=== PATIENT | male | born 1980 | race Caucasian/White ===

== ENCOUNTER 2019-10-12 15:10 | Emergency (ER) | payer SELFPAY ==
[2019-10-12] MEDS ORDERED: GLUCAGON 1 MG/VIAL ONE ×2 (15:26→16:13)
[2019-10-12] MEDS ORDERED: WATER FOR INJ,STERILE 0 ML ONE (15:27)
--- NOTE | 2019-10-12 17:15 | ER ---
Nurse's Notes [facility] Name: Dwayne Craig Age: 39 yrs Sex: Male : 1980 Arrival Date: 10/12/2019 Time: 15:12 Bed 7 Private MD: Diagnosis: Foreign body in esophagus Presentation: 10/12 15:13 Presenting complaint: Patient states: this has happened before, i had a cyst on my tw2 esophagus before and it prevented me from swallowing and it happened today, after i ate a large bite of turkey, i try to drink stuff and i throw it up. Transition of care: patient was not received from another setting of care. Onset of symptoms was October 12, 2019. Risk Assessment: Do you want to hurt yourself or someone else? Patient reports no desire to harm self or others. Initial Sepsis Screen: Does the patient meet any 2 criteria? No. Patient's initial sepsis screen is negative. Does the patient have a suspected source of infection? No. Patient's initial sepsis screen is negative. Care prior to arrival: None. 15:13 Method Of Arrival: Ambulatory tw2 15:13 Acuity: JOSIAH 2 tw2 Triage Assessment: 15:14 General: Appears uncomfortable, Behavior is cooperative, appropriate for age. Pain:. tw2 EENT: Reports difficulty swallowing. 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 - Social history:: Smoking status: . - Ebola Screening: : Patient denies exposure to infectious person. Screenin:18 Abuse screen: Denies threats or abuse. Nutritional screening: No deficits noted. tw2 Tuberculosis screening: No symptoms or risk factors identified. Fall Risk None identified. Assessment: 15:30 General: Appears in no apparent distress. well groomed, well developed, well nourished, sg Behavior is calm, cooperative, appropriate for age. Pain: Denies pain. Neuro: Level of Consciousness is awake, alert, obeys commands, Oriented to person, place, time, Loan Review Analyst are equal bilaterally Facial symmetry appears normal. Cardiovascular: Capillary refill is brisk in bilateral fingers Patient's skin is warm and dry. Chest pain is denied. Respiratory: Airway is patent Respiratory effort is even, unlabored, Respiratory pattern is regular, symmetrical. GI: Abdomen is round non-distended, Reports tolerance of fluids, tolerance of food. : No signs and/or symptoms were reported regarding the genitourinary system. EENT: Nares are clear bilaterally Oral mucosa is moist. Throat is clear. Derm: Skin is pink, warm \T\ dry. Musculoskeletal: Circulation, motion, and sensation intact. Range of motion: intact in all extremities. 16:00 Reassessment: Patient appears in no apparent distress at this time. pt given Coke and sg instructed to drink through the straw provided as instructed by the ERP. 17:30 Reassessment: Patient appears in no apparent distress at this time. Patient and/or sg family updated on plan of care and expected duration. Pain level reassessed. Patient is alert, oriented x 3, equal unlabored respirations, skin warm/dry/pink. report given to YANELIS Echols at receiving facility. Vital Signs: 15:14 BP 134 / 80; Pulse 64; Resp 18; Temp 96.6(TE); Pulse Ox 95% on R/A; Weight 105.01 kg tw2 (M); Height 6 ft. 0 in. (182.88 cm); Pain 7/10; 17:16 BP 130 / 72; Pulse 66; Resp 17; Temp 97.2; Pulse Ox 97% on R/A; sg 15:14 Body Mass Index 31.40 (105.01 kg, 182.88 cm) tw2 ED Course: 15:12 Patient arrived in ED. mr 15:14 Triage completed. tw2 15:14 Arm band placed on. tw2 15:16 Loida Luz FNP-C is [facility]. kb 15:16 Christian Patterson MD is Attending Physician. kb 15:16 Bed in low position. Call light in reach. tw2 15:17 Enrike Zamora, YANELIS is Primary Nurse. sg 15:30 Inserted saline lock: 22 gauge in right hand, using aseptic technique. IV inserted by edith Albright RN. 16:43 initiated a transfer with Josie Roberts from [facility]. eb 16:49 X-ray completed. Portable x-ray completed in exam room. Patient tolerated procedure mh1 well. 17:[address] Jurado the hospitalist resource conservation manager for [facility] with Loida BELTRAN for patient transfer consultation.. 17:15 administrative approval given by Josie Roberts / Patient has been accepted to [facility] bed 943/ Dr. Jurado has accepted the patient in transfer/ report to be called to [phone]. 17:17 Awaiting for x-ray. sg 17:50 Patient transferred, IV remains in place. intact, No redness/swelling at site. sg 17:50 No provider procedures requiring assistance completed. sg Administered Medications: 15:30 Drug: Glucagon 1 mg Route: IVP; Site: right hand; sg 16:00 Follow up: Response: No adverse reaction sg 16:14 Drug: Glucagon 1 mg Route: IVP; Site: right hand; sg 16:40 Follow up: Response: No adverse reaction sg Outcome: 17:15 ER care complete, transfer ordered by . kb 17:50 Transferred by ground [facility] to [facility], Transfer form completed. sg 17:50 Condition: good 17:50 Instructed on the need for transfer, safety practices, Demonstrated understanding of instructions. 17:52 Patient left the ED. sg Signatures: Loida Luz, FRONT END TECHNICIAN-C FRONT END TECHNICIAN-Enrike Jones, RN YANELIS Racquel Rene mr Ontiveros [facility] Teresa 1 Dominique Whitaker RN RN 2 Nhan, Josie agarwal
--- NOTE | 2019-10-12 17:16 | EDPHYS ---
Physician Documentation [facility] Name: Dwayne Craig Age: 39 yrs Sex: Male : 1980 Arrival Date: 10/12/2019 Time: 15:12 Bed 7 Private MD: ED Physician Christian Patterson HPI: 10/12 15:40 This 39 yrs old Male presents to ER via Ambulatory with complaints of Food kb stuck in throat. 15:42 The patient or guardian reports the patient has a suspected foreign body, of the kb throat. The reported likely foreign body is piece of meat. Onset: The symptoms/episode began/occurred just prior to arrival. Current symptoms: foreign body sensation. Treatment Prior to Arrival: tried to flush. The patient has experienced similar episodes in the past, a few times. The patient has not recently seen a physician. Pt reports he got some turkey stuck in his esophagus. Reports he tried to drink water to make it go down, but the water came back up. 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 - Social history:: Smoking status: . - Ebola Screening: : Patient denies exposure to infectious person. ROS: 15:43 Constitutional: Negative for fever, chills, and weight loss, Neck: Negative for injury, kb pain, and swelling, Cardiovascular: Negative for chest pain, palpitations, and edema, Respiratory: Negative for shortness of breath, cough, wheezing, and pleuritic chest pain, Abdomen/GI: Negative for abdominal pain, nausea, vomiting, diarrhea, and constipation, MS/Extremity: Negative for injury and deformity, Skin: Negative for injury, rash, and discoloration, Neuro: Negative for headache, weakness, numbness, tingling, and seizure. 15:43 ENT: Positive for foreign body sensation. Exam: 15:43 Constitutional: This is a well developed, well nourished patient who is awake, alert, kb and in no acute distress. Head/Face: Normocephalic, atraumatic. ENT: Nares patent. No nasal discharge, no septal abnormalities noted. Tympanic membranes are normal and external auditory canals are clear. Oropharynx with no redness, swelling, or masses, exudates, or evidence of obstruction, uvula midline. Mucous membranes moist. Neck: Trachea midline, no thyromegaly or masses palpated, and no cervical lymphadenopathy. Supple, full range of motion without nuchal rigidity, or vertebral point tenderness. No Meningismus. Chest/axilla: Normal chest wall appearance and motion. Nontender with no deformity. No lesions are appreciated. Cardiovascular: Regular rate and rhythm with a normal S1 and S2. No gallops, murmurs, or rubs. Normal PMI, no JVD. No pulse deficits. Respiratory: Lungs have equal breath sounds bilaterally, clear to auscultation and percussion. No rales, rhonchi or wheezes noted. No increased work of breathing, no retractions or nasal flaring. Abdomen/GI: Soft, non-tender, with normal bowel sounds. No distension or tympany. No guarding or rebound. No evidence of tenderness throughout. Skin: Warm, dry with normal turgor. Normal color with no rashes, no lesions, and no evidence of cellulitis. MS/ Extremity: Pulses equal, no cyanosis. Neurovascular intact. Full, normal range of motion. Neuro: Awake and alert, GCS 15, oriented to person, place, time, and situation. Cranial nerves II-XII grossly intact. Motor strength 5/5 in all extremities. Sensory grossly intact. Cerebellar exam normal. Normal gait. Vital Signs: 15:14 BP 134 / 80; Pulse 64; Resp 18; Temp 96.6(TE); Pulse Ox 95% on R/A; Weight 105.01 kg tw2 (M); Height 6 ft. 0 in. (182.88 cm); Pain 7/10; 17:16 BP 130 / 72; Pulse 66; Resp 17; Temp 97.2; Pulse Ox 97% on R/A; sg 15:14 Body Mass Index 31.40 (105.01 kg, 182.88 cm) tw2 MDM: 15:17 Patient medically screened. bebeto 15:40 Data reviewed: vital signs, nurses notes. Data interpreted: Pulse oximetry: on room air kb is 95 %. Interpretation: normal. 16:44 Counseling: I had a detailed discussion with the patient and/or guardian regarding: the kb historical points, exam findings, and any diagnostic results supporting the discharge/admit diagnosis, the need to transfer to another facility, [facility] does not immediately have the required specialist. ED course: Unable to get food bolus to go down after 2 doses of glucagon and coke through a straw. Transfer to [facility] initiated for GI. 17:12 ED course: Dr Jurado, hospitalist at [facility], accepts pt for transfer. GI will consult.kb 10/12 16:43 Order name: Chest Single View XRAY kb 10/12 15:23 Order name: IV Start; Complete Time: 15:32 kb Administered Medications: 15:30 Drug: Glucagon 1 mg Route: IVP; Site: right hand; sg 16:00 Follow up: Response: No adverse reaction sg 16:14 Drug: Glucagon 1 mg Route: IVP; Site: right hand; sg 16:40 Follow up: Response: No adverse reaction sg Disposition: 10/12/19 17:15 Transfer ordered to [facility]. Diagnosis is Foreign body in esophagus. - Reason for transfer: Higher level of care. - Accepting physician is Dr Jurado. - Condition is Stable. - Problem is new. - Symptoms are unchanged. Addendum: 10/16/2019 10:38 Co-signature as Attending Physician, Christian Patterson MD I agree with the assessment and c hagan plan of care. Signatures: Dispatcher [employer] EDMS Loida Luz, METAL DRAWER-C METAL DRAWER-Ckb Enrike Zamora RN Christian Kaiser MD MD cha Wise, Tara, RN RN tw2 Corrections: (The following items were deleted from the chart) 10/12 17:52 17:15 10/12/2019 17:15 Transfer ordered to [facility]. Diagnosis is sg Foreign body in esophagus. Reason for transfer: Higher level of care. Accepting physician is Dr Jurado. Condition is Stable. Problem is new. Symptoms are unchanged. kb
--- NOTE | 2019-10-12 18:53 | RAD REPORT ---
EXAM DESCRIPTION: Flip Single View10/12/2019 4:49 pm CLINICAL HISTORY: Chest pain COMPARISON: 2014 FINDINGS: The lungs appear clear of acute infiltrate. The heart is normal size A radiopaque foreign body is not seen but can be missed on x-ray
[2019-10-12 19:04] VITALS: BP 130/72; TEMP 97.2; O2SAT 97
== END 2019-10-12 17:52 | disposition short-term general hospital (02) ==
LOC: ER 15:10
DX: T18.128A Food in esophagus causing other injury, initial encounter (principal); Z88.0 Allergy status to penicillin
CPT/HCPCS: 71045; 96374; 99285; J1610

== ENCOUNTER 2021-12-25 16:01 | Emergency (ER) | payer SELFPAY ==
--- OUTSIDE RECORDS SUMMARY | 2021-12-25 16:04 | XMS REPORT | Continuity of Care Document ---
:1980 Author Organization [facility] t Address [address] [place] [address] Dr. Garnica [address] [place] [id number] Care Team Providers Name Role Phone EDWARDO Attending Clinician Unavailable EDWARDO Admitting Clinician Unavailable Problems This patient has no known problems. Allergies, Adverse Reactions, Alerts This patient has no known allergies or adverse reactions. Medications This patient has no known medications. Procedures This patient has no known procedures. Results Test Description Test Time Test Comments Results Result [facility] e Comments TISSUE EXAM 2019-10-17 Surgical Pathology Report 15:40:00 Case: [id number] Authorizing Provider: Tylor Ayala MD Collected: 10/12/20192011 Ordering Location: [address] Received: 10/13/2019 0907 Service Pathologist: Lucretia Ochoa MD Specimens: A) - Distal Esophagus, BX R/O EOE B) - Proximal Esophagus, BX R/O EOE A. ESOPHAGUS, DISTAL, BIOPSY: - ACTIVE ESOPHAGITIS WITH MILDLY INCREASED INTRAEPITHELIAL EOSINOPHILS - NEGATIVE FOR INTESTINAL METAPLASIA, DYSPLASIA, MALIGNANCYB. ESOPHAGUS, PROXIMAL, BIOPSY: - ACTIVE ESOPHAGITIS WITH FOCALLY INCREASED PROMINENT INTRAEPITHELIAL EOSINOPHILS - NEGATIVE FOR DYSPLASIA, MALIGNANCY Signing Pathologist Direct Phone Line: [phone] y signed by Lucretia Ochoa MD on 10/17/2019 at 3:40 PMBoth biopsies show active esophagitis with mixed neutrophil and eosinophil infiltrate. The eosinophil count is focally >15/10 HPF in specimen B. GMS stain is negative for fungal elements. Prominent eosinophils are seen in several conditions including food impaction, eosinophilic esophagitis, reflux esophagitis, pill induced esophagitis, hypereosinophilic syndrome, parasitic disease, Crohn's disease and connective tissue disorders amongst others. Clinical and endoscopic correlation is required. There is no dysplasia or carcinoma.[id number] reop Diagnosis: Foreign body, food impaction. This case has two parts. A. Received in formalin labeled with the patient's name, accession number and "distal esophagus" are multiple mckeon-pink tissue fragments measuring up to 0.2 cm in greatest dimension which are filtered and submitted in toto in A1. B. Received in formalin labeled with the patient's name, accession number and "proximal esophagus" are multiple mckeon-pink tissue fragments measuring up to 0.2 cm in greatest dimension which are filtered and submitted in toto in B1. PA/bc Performed.The interpretation of this case included the use of immunohistochemistry or special stains.Control Slides Examined: In-house known positive controls were evaluated along with the test tissue. These control slides run alongside of the patients sample show appropriate staining. Internal positive and negative controls when available are evaluated Immunohistochemistry technical testing was performed at [facility], Pathology Laboratory where it was developed and its performance characteristics were determined. It has not been cleared or approved by the U.S. Food and Drug Administration. The FDA has determined that such clearance or approval is not necessary. The test is used for clinical purposes. It should not be regarded as investigational or for research. This laboratory is certified under the Clinical Laboratory Improvement Amendments of 1988 (CLIA-88) as qualified to perform high complexity clinical laboratory testing. BASIC METABOLIC PANEL 2019-10-13 06:41:00 Test Item Value Reference Range Interpretation Comme nts SODIUM (BEAKER) (test code 139 meq/L 136-145 = 381) POTASSIUM (BEAKER) (test 4.0 meq/L 3.5-5.1 code = 379) CHLORIDE (BEAKER) (test 109 meq/L 98-107 H code = 382) CO2 (BEAKER) (test code = 22 meq/L 22-29 355) BLOOD UREA NITROGEN 13 mg/dL 7-21 (BEAKER) (test code = 354) CREATININE (BEAKER) (test 0.94 mg/dL 0.57-1.25 code = 358) GLUCOSE RANDOM (BEAKER) 153 mg/dL 70-105 H (test code = 652) CALCIUM (BEAKER) (test code 9.0 mg/dL 8.4-10.2 = 697) EGFR (BEAKER) (test code = 89 mL/min/1.73 sq m ESTIMATED GFR IS NOT 1092) ACCURATE CRE ATININE CLEARANCE IN NV EDICTING GLOMERULAR FILT RATION RATE. ESTIMATED GFR IS NOT APPLICABLE FOR DIALYSIS PATIENTS. CBC W/PLT COUNT & AUTO [id number] 20:51:00 Test Item Value Reference Range Interpretation Comments WHITE BLOOD CELL COUNT (BEAKER) 12.1 K/ L 3.5-10.5 H (test code = 775) RED BLOOD CELL COUNT (BEAKER) 4.51 M/ L 4.63-6.08 L (test code = 761) HEMOGLOBIN (BEAKER) (test code = 14.2 GM/DL 13.7-17.5 410) HEMATOCRIT (BEAKER) (test code = 41.6 % 40.1-51.0 411) MEAN CORPUSCULAR VOLUME (BEAKER) 92.2 fL 79.0-92.2 (test code = 753) MEAN CORPUSCULAR HEMOGLOBIN 31.5 pg 25.7-32.2 (BEAKER) (test code = 751) MEAN CORPUSCULAR HEMOGLOBIN CONC 34.1 GM/DL 32.3-36.5 (BEAKER) (test code = 752) RED CELL DISTRIBUTION WIDTH 11.7 % 11.6-14.4 (BEAKER) (test code = 412) PLATELET COUNT (BEAKER) (test 231 K/CU MM 150-450 code = 756) MEAN PLATELET VOLUME (BEAKER) 9.5 fL 9.4-12.4 (test code = 754) NUCLEATED RED BLOOD CELLS 0 /100 WBC 0-0 (BEAKER) (test code = 413) NEUTROPHILS RELATIVE PERCENT 86 % (BEAKER) (test code = 429) LYMPHOCYTES RELATIVE PERCENT 11 % (BEAKER) (test code = 430) MONOCYTES RELATIVE PERCENT 3 % (BEAKER) (test code = 431) EOSINOPHILS RELATIVE PERCENT 0 % (BEAKER) (test code = 432) BASOPHILS RELATIVE PERCENT 0 % (BEAKER) (test code = 437) NEUTROPHILS ABSOLUTE COUNT 10.41 K/ L 1.78-5.38 H (BEAKER) (test code = 670) LYMPHOCYTES ABSOLUTE COUNT 1.33 K/ L 1.32-3.57 (BEAKER) (test code = 414) MONOCYTES ABSOLUTE COUNT (BEAKER) 0.30 K/ L 0.30-0.82 (test code = 415) EOSINOPHILS ABSOLUTE COUNT 0.01 K/ L 0.04-0.54 L (BEAKER) (test code = 416) BASOPHILS ABSOLUTE COUNT (BEAKER) 0.01 K/ L 0.01-0.08 (test code = 417) IMMATURE GRANULOCYTES-RELATIVE 0 % 0-1 PERCENT (BEAKER) (test code = 2801)
--- NOTE | 2021-12-25 17:14 | RAD REPORT ---
EXAM DESCRIPTION: RAD - Chest Single View - 12/25/2021 5:04 pm CLINICAL HISTORY: sob, chest pain COMPARISON: Chest Single View dated 10/12/2019; CHEST PA AND LAT 2 VIEW dated 05/21/2015 FINDINGS: Lines: None. Lungs: No evidence of edema or pneumonia. Pleural: No significant pleural effusions or pneumothorax. Cardiac: The heart size is within normal limits. Bones: No acute fractures. Other: IMPRESSION: No acute cardiopulmonary disease.
[2021-12-25 17:30] LABS: Absolute Lymphocytes (CBC) 2.3 K/uL (0.7-4.9); Hematocrit 43.5 % (39.6-49.0); Lymphocytes % 23.6 % (15.3-44.8); RBC Red Blood Cell Count 4.78 M/uL (4.33-5.43)
[2021-12-25 17:34] LABS: Albumin 3.9 g/dL (3.4-5.0); Bilirubin Direct 0.3 mg/dL (0-0.2); Bilirubin Total 1.3 mg/dL (0.2-1.0); Potassium 3.4 mmol/L (3.5-5.1); Protein, Total 8.1 g/dL (6.4-8.2); Troponin High Sensitivity 5.5 pg/mL (<58.9)
[2021-12-25 18:13] LABS: SARS-COV-2 RT PCR NEGATIVE (NEGATIVE)
--- NOTE | 2021-12-25 19:42 | ER ---
Nurse's Notes [facility] Name: Dwayne Craig Age: 41 yrs Sex: Male : 1980 Arrival Date: 12/25/2021 Time: 16:02 Bed 6 Private MD: Diagnosis: Acute upper respiratory infection, unspecified;Chest pain, unspecified Presentation: 12/25 16:15 Chief complaint: Patient states: he has been feeling bad for several days, and feels ap3 like he is having trouble breathing today. Coronavirus screen: congestion, cough unrelated to allergies, fatigue, fever, headache, shortness of breath, Client presents with at least one sign or symptom that may indicate coronavirus-19. Standard/surgical mask placed on the client. Ebola Screen: No symptoms or risks identified at this time. Initial Sepsis Screen: Does the patient meet any 2 criteria? No. Patient's initial sepsis screen is negative. Does the patient have a suspected source of infection? No. Patient's initial sepsis screen is negative. Risk Assessment: Do you want to hurt yourself or someone else? Patient reports no desire to harm self or others. Onset of symptoms was December 21, 2021. 16:15 Method Of Arrival: Ambulatory ap3 16:15 Acuity: JOSIAH 3 ap3 Triage Assessment: 16:18 General: Appears in no apparent distress. comfortable, Behavior is calm, cooperative, ap3 appropriate for age. Pain: Complains of pain in chest Quality of pain is described as tightness with breathing. Neuro: Level of Consciousness is awake, alert, obeys commands, Oriented to person, place, time, situation, Appropriate for age Moves all extremities. Speech is normal, Facial symmetry appears normal. Cardiovascular: Patient's skin is warm and dry. Respiratory: Reports shortness of breath at rest since 12/21/2021 pain with cough pain with respiration Airway is patent Respiratory effort is even, unlabored, Respiratory pattern is regular, symmetrical, Onset: The symptoms/episode began/occurred gradually, the patient has mild shortness of breath. Historical: - Allergies: 16:17 PENICILLINS; ap3 - Home Meds: 16:17 None [Active]; ap3 - PMHx: 16:17 None; ap3 - Immunization history:: Client reports having NOT received the Covid vaccine. Flu vaccine is not up to date. - Social history:: Smoking status: Patient denies any tobacco usage or history of. Screenin:19 Abuse screen: Denies threats or abuse. Nutritional screening: No deficits noted. ap3 Tuberculosis screening: No symptoms or risk factors identified. Fall Risk None identified. Assessment: 16:34 General: Appears in no apparent distress. comfortable. Cardiovascular: Heart tones S1 ss7 S2 present. Respiratory: Reports shortness of breath Breath sounds are clear. GI: No deficits noted. : No deficits noted. EENT: No deficits noted. Derm: No deficits noted. Musculoskeletal: No deficits noted. 18:00 Reassessment: No changes from previously documented assessment. Patient and/or family bp updated on plan of care and expected duration. Pain level reassessed. Cardiovascular: Rhythm is sinus rhythm. 20:00 Reassessment: No changes from previously documented assessment. Patient and/or family vc1 updated on plan of care and expected duration. Pain level reassessed. Patient states feeling better. Patient states symptoms have improved. Vital Signs: 16:15 BP 128 / 85; Pulse 74; Resp 18; Temp 98.3; Pulse Ox 99% on R/A; Weight 99.79 kg; Height ap3 6 ft. (182.88 cm); 17:00 BP 128 / 86; Pulse 75; Resp 18; Pulse Ox 100% ; bp 18:00 BP 124 / 83; Pulse 73; Resp 18; Pulse Ox 100% ; bp 20:00 BP 135 / 91; Pulse 70; Resp 18; Pulse Ox 100% on R/A; vc1 16:15 Body Mass Index 29.84 (99.79 kg, 182.88 cm) ap3 ED Course: 16:02 Patient arrived in ED. am2 16:17 Triage completed. ap3 16:19 Arm band placed on left wrist. ap3 16:21 Ankit Carter PA is PHCP. m 16:21 Daniela Bynum MD is Attending Physician. m 16:21 Darwin Rodriguez, YANELIS is Primary Nurse. ll1 16:21 Patient placed in an exam room, on a stretcher. ll1 17:00 Inserted saline lock: 20 gauge in right antecubital area, using aseptic technique. ss7 17:04 XRAY Chest (1 view) In Process Unspecified. EDMS 19:41 Primary Nurse role handed off by Darwin Rodriguez, YANELIS mw2 20:00 No provider procedures requiring assistance completed. vc1 20:00 IV discontinued, intact, bleeding controlled, No redness/swelling at site. Pressure vc1 dressing applied. Administered Medications: No medications were administered Outcome: 19:41 Discharge ordered by . rima 20:00 Discharged to home ambulatory, with family. vc1 20:00 Condition: good 20:00 Discharge instructions given to patient, family, Instructed on discharge instructions, follow up and referral plans. medication usage, Demonstrated understanding of instructions, follow-up care, medications, Prescriptions given X 3. 20:01 Patient left the ED. bb Signatures: Dispatcher [employer] EDMS Ankit Carter PA PA jmm Ballard, Brenda RN RN bb Emma Robert Brian RN RN bp Emma Brown RN RN ap3 Antonio Steen mw2 Darwin Rodriguez RN RN ll1 Zoë Cedeno RN RN vc1 Teresa Alvarez RN RN ss7 Corrections: (The following items were deleted from the chart) 16:18 16:17 PMHx: esoghagus cyst; ap3 ap3
--- NOTE | 2021-12-25 19:42 | EDPHYS ---
Physician Documentation [facility] Name: Dwayne Craig Age: 41 yrs Sex: Male : 1980 Arrival Date: 12/25/2021 Time: 16:02 Bed 6 Private MD: ED Physician Daniela Bynum HPI: 12/25 16:21 This 41 yrs old Male presents to ER via Ambulatory with complaints of Breathing jmm Difficulty. 16:21 The patient has shortness of breath at rest. Onset: The symptoms/episode began/occurred jmm gradually, 5 day(s) ago. Duration: The symptoms are continuous, and are steadily getting worse. The patient's shortness of breath is aggravated by coughing, is alleviated by nothing. Associated signs and symptoms: Pertinent positives: non-productive cough. This is a 41-year-old male with no chronic medical conditions presents emerged department with complaints of cough, shortness of breath progressively worsening over the past 5 days. Patient states that his children has similar symptoms. Patient is concerned due to developing chest pain as well. Denies history of cardiac disease, denies tobacco or drug use.. Historical: - Allergies: 16:17 PENICILLINS; ap3 - Home Meds: 16:17 None [Active]; ap3 - PMHx: 16:17 None; ap3 - Immunization history:: Client reports having NOT received the Covid vaccine. Flu vaccine is not up to date. - Social history:: Smoking status: Patient denies any tobacco usage or history of. ROS: 16:21 Constitutional: Positive for body aches, chills. jmm 16:21 Cardiovascular: Positive for chest pain. 16:21 Respiratory: Positive for cough, shortness of breath. 16:21 All other systems are negative. Exam: 16:21 Constitutional: This is a well developed, well nourished patient who is awake, alert, jmm and in no acute distress. Head/Face: atraumatic. Eyes: EOMI, no conjunctival erythema appreciated ENT: Moist Mucus Membranes Neck: Trachea midline, Supple Chest/axilla: Normal chest wall appearance and motion. Cardiovascular: Regular rate and rhythm. No edema appreciated Respiratory: Normal respirations, no respiratory distress appreciated Abdomen/GI: Non distended, soft Back: Normal ROM Skin: General appearance color normal MS/ Extremity: Moves all extremities, no obvious deformities appreciated, no edema noted to the lower extremities Neuro: Awake and alert Psych: Behavior is normal, Mood is normal, Patient is cooperative and pleasant Vital Signs: 16:15 BP 128 / 85; Pulse 74; Resp 18; Temp 98.3; Pulse Ox 99% on R/A; Weight 99.79 kg; Height ap3 6 ft. (182.88 cm); 17:00 BP 128 / 86; Pulse 75; Resp 18; Pulse Ox 100% ; bp 18:00 BP 124 / 83; Pulse 73; Resp 18; Pulse Ox 100% ; bp 20:00 BP 135 / 91; Pulse 70; Resp 18; Pulse Ox 100% on R/A; vc1 16:15 Body Mass Index 29.84 (99.79 kg, 182.88 cm) ap3 MDM: 16:51 Patient medically screened. [facility] 19:41 Data reviewed: vital signs, nurses notes. [facility] 19:41 ED course: Patient is alert nontoxic in appearance in the ED. No signs of respiratory [facility] distress. Labs and imaging studies were negative. Patient advised follow-up PCP and otherwise given strict return precautions. Patient understood agrees plan of care.. 12/25 16:20 Order name: COVID-19/FLU A+B (Document "Date of Onset" if Symptomatic); Complete Time: ap3 18:25 12/25 16:51 Order name: Basic Metabolic Panel [facility] 12/25 16:51 Order name: CBC with Diff; Complete Time: 17:36 [facility] 12/25 16:51 Order name: LFT's [facility] 12/25 16:51 Order name: Magnesium [facility] 12/25 16:51 Order name: NT PRO-BNP [facility] 12/25 16:51 Order name: PT-INR; Complete Time: 19:35 [facility] 12/25 16:51 Order name: Troponin HS [facility] 12/25 16:51 Order name: XRAY Chest (1 view); Complete Time: 17:16 [facility] 12/25 16:51 Order name: EKG; Complete Time: 16:51 [facility] 12/25 16:51 Order name: Cardiac monitoring; Complete Time: 17:03 [facility] 12/25 16:51 Order name: EKG - Nurse/Tech; Complete Time: 17:03 [facility] 12/25 16:51 Order name: IV Saline Lock; Complete Time: 17:03 [facility] 12/25 16:51 Order name: D-Dimer; Complete Time: 19:35 [facility] 12/25 16:51 Order name: Labs collected and sent; Complete Time: 17:03 [facility] 12/25 16:51 Order name: O2 Per Protocol; Complete Time: 16:57 [facility] 12/25 16:51 Order name: O2 Sat Monitoring; Complete Time: 16:57 [facility] 12/25 17:34 Order name: Labs - recollect needed: Recollect blue top please; Complete Time: 17:46 ss Administered Medications: No medications were administered Disposition: 12/26 12:53 Co-signature as Attending Physician, Daniela Bynum MD I agree with the assessment and sp3 plan of care. Disposition Summary: 12/25/21 19:41 Discharge Ordered Location: Home [facility] Condition: Stable jm Diagnosis - Acute upper respiratory infection, unspecified jmm - Chest pain, unspecified jmm Followup: [facility] - With: Private Physician - When: 2 - 3 days - Reason: Recheck today's complaints, Continuance of care, Re-evaluation by your physician Discharge Instructions: - Discharge Summary Sheet [facility] - Nonspecific Chest Pain, Adult jmm - Upper Respiratory Infection, Adult [facility] Forms: - Medication Reconciliation Form [facility] - Thank You Letter [facility] - Antibiotic Education [facility] - Prescription Opioid Use [facility] Prescriptions: - albuterol sulfate 90 mcg/actuation Inhalation HFA aerosol inhaler - inhale 2 puff by INHALATION route every 4 hours; 1 Pump; Refills: 0, Product [facility] Selection Permitted - Zithromax Z-Otilio 250 mg Oral Tablet - take 1 tablet by ORAL route as directed for 5 days Day 1 - take two (2) tablets [facility] one time. Day 2, 3, 4 , 5 take one (1) tablet once daily.; 6 tablet; Refills: 0, Product Selection Permitted - Medrol (Otilio) 4 mg Oral Tablets, Dose Pack - take 1 tablet by ORAL route as directed - follow package instructions; 1 jm packet; Refills: 0, Product Selection Permitted Signatures: Dispatcher [employer] EDAnkit Martinez PA PA jmm Smirch, Shelby, RN RN ss Prokisch, Amanda, RN RN ap3 Daniela Bynum MD MD sp3 Corrections: (The following items were deleted from the chart) 12/25 16:18 16:17 PMHx: esoghagus cyst; ap3 ap3
[2021-12-25 20:07] VITALS: TEMP 98.3
[2021-12-25 20:08] VITALS: O2SAT 100
[2021-12-25 20:09] VITALS: BP 124/83
[2021-12-25 22:14] LABS: Magnesium 1.9
== END 2021-12-25 20:01 | disposition home or self-care (01) ==
LOC: ER 16:01
DX: J06.9 Acute upper respiratory infection, unspecified (principal); Z88.0 Allergy status to penicillin; Z20.822 Contact with and (suspected) exposure to COVID-19
CPT/HCPCS: 0240U; 36415; 71045; 80048; 80076; 83735; 83880; 84484; 85025; 85379; 85610; 93005; 99284

== ENCOUNTER 2022-07-07 02:59 | Observation (INO) | payer SELFPAY ==
--- OUTSIDE RECORDS SUMMARY | 2022-07-07 03:01 | XMS REPORT | Continuity of Care Document ---
:1980 Author Organization [facility] t Address [address] [place] [address] [address] [place] [address] Care Team Providers Name Role Phone FIDELINA BROOKE Attending Clinician Unavailable FIDELINA BROOKE Admitting Clinician Unavailable Problems This patient has no known problems. Allergies, Adverse Reactions, Alerts This patient has no known allergies or adverse reactions. Medications This patient has no known medications. Procedures This patient has no known procedures. Results Test Description Test Time Test Comments Results Result [facility] e Comments TISSUE EXAM 2019-10-17 Surgical Pathology Report 15:40:00 Case: [id number] Authorizing Provider: Tylor Ayala MD Collected: 10/12/20192011 Ordering Location: [address] Received: 10/13/2019 0907 Service Pathologist: Lucretia [...] DYSPLASIA, MALIGNANCY Signing Pathologist Direct Phone Line: [phone] y signed by Lucretia Ochoa MD on [...] is required. There is no dysplasia or carcinoma.[id number] reop Diagnosis: Foreign body, food impaction. This [...] evaluated Immunohistochemistry technical testing was performed at [facility], Pathology Laboratory where it was developed [...] NOT 1092) ACCURATE CRE ATININE CLEARANCE IN CO EDICTING GLOMERULAR FILT RATION RATE. ESTIMATED GFR IS NOT APPLICABLE FOR DIALYSIS PATIENTS. CBC W/PLT COUNT & AUTO [id number] 20:51:00 Test Item Value Reference Range Interpretation [...]
--- NOTE | 2022-07-07 03:30 | EDPHYS ---
Physician Documentation [facility] Name: Dwayne Craig Age: 42 yrs Sex: Male : 1980 Arrival Date: 07/07/2022 Time: 03:02 Bed 6 Private MD: ED Physician Christian Patterson HPI: 07/07 03:25 This 42 yrs old Male presents to ER via Ambulatory with complaints of Chest bebeto Pain. 03:25 The patient or guardian reports chest pain that is located primarily in the substernal bebeto area. Onset: 1 day(s) ago. The pain does not radiate. Associated signs and symptoms: Pertinent positives: lightheadedness. The chest pain is described as aching, a pressure. Duration: The patient or guardian reports a single episode, that is still ongoing. Modifying factors: The symptoms are alleviated by nothing. the symptoms are aggravated by nothing. Severity of pain: At its worst the pain was mild in the emergency department the pain is unchanged. The patient has not experienced similar symptoms in the past. Historical: - Allergies: 03:11 PENICILLINS; lp1 - Home Meds: 03:11 None [Active]; lp1 - PMHx: 03:11 None; lp1 - PSHx: 03:11 None; lp1 - Immunization history:: Adult Immunizations up to date. - Social history:: Smoking status: Patient denies any tobacco usage or history of. - Family history:: not pertinent. ROS: 03:25 Constitutional: Negative for fever, chills, and weight loss, Eyes: Negative for injury, bebeto pain, redness, and discharge, ENT: Negative for injury, pain, and discharge, Neck: Negative for injury, pain, and swelling, Respiratory: Negative for shortness of breath, cough, wheezing, and pleuritic chest pain, Abdomen/GI: Negative for abdominal pain, nausea, vomiting, diarrhea, and constipation, Back: Negative for injury and pain, : Negative for injury, bleeding, discharge, and swelling, MS/Extremity: Negative for injury and deformity, Skin: Negative for injury, rash, and discoloration, Neuro: Negative for headache, weakness, numbness, tingling, and seizure, Psych: Negative for depression, anxiety, suicide ideation, homicidal ideation, and hallucinations, Allergy/Immunology: Negative for hives, rash, and allergies, Endocrine: Negative for neck swelling, polydipsia, polyuria, polyphagia, and marked weight changes, Hematologic/Lymphatic: Negative for swollen nodes, abnormal bleeding, and unusual bruising. 03:25 Cardiovascular: Positive for chest pain, of the chest. Exam: 03:25 Constitutional: This is a well developed, well nourished patient who is awake, alert, bebeto and in no acute distress. Head/Face: Normocephalic, atraumatic. Eyes: Pupils equal round and reactive to light, extra-ocular motions intact. Lids and lashes normal. Conjunctiva and sclera are non-icteric and not injected. Cornea within normal limits. Periorbital areas with no swelling, redness, or edema. ENT: Nares patent. No nasal discharge, no septal abnormalities noted. Tympanic membranes are normal and external auditory canals are clear. Oropharynx with no redness, swelling, or masses, exudates, or evidence of obstruction, uvula midline. Mucous membranes moist. Neck: Trachea midline, no thyromegaly or masses palpated, and no cervical lymphadenopathy. Supple, full range of motion without nuchal rigidity, or vertebral point tenderness. No Meningismus. Chest/axilla: Normal chest wall appearance and motion. Nontender with no deformity. No lesions are appreciated. Cardiovascular: Regular rate and rhythm with a normal S1 and S2. No gallops, murmurs, or rubs. Normal PMI, no JVD. No pulse deficits. Respiratory: Lungs have equal breath sounds bilaterally, clear to auscultation and percussion. No rales, rhonchi or wheezes noted. No increased work of breathing, no retractions or nasal flaring. Abdomen/GI: Soft, non-tender, with normal bowel sounds. No distension or tympany. No guarding or rebound. No evidence of tenderness throughout. Back: No spinal tenderness. No costovertebral tenderness. Full range of motion. Male : Normal genitalia with no discharge or lesions. Skin: Warm, dry with normal turgor. Normal color with no rashes, no lesions, and no evidence of cellulitis. MS/ Extremity: Pulses equal, no cyanosis. Neurovascular intact. Full, normal range of motion. Neuro: Awake and alert, GCS 15, oriented to person, place, time, and situation. Cranial nerves II-XII grossly intact. Motor strength 5/5 in all extremities. Sensory grossly intact. Cerebellar exam normal. Normal gait. Psych: Awake, alert, with orientation to person, place and time. Behavior, mood, and affect are within normal limits. 03:25 ECG was reviewed by the Attending Physician. Vital Signs: 03:10 BP 125 / 89; Pulse 64; Resp 17; Temp 97.9(O); Pulse Ox 98% on R/A; Weight 99.79 kg (R); lp1 Height 6 ft. 0 in. (182.88 cm); Pain 5/10; 04:00 BP 132 / 92; Pulse 56; Resp 18; Pulse Ox 98% ; vc1 05:00 BP 134 / 88; Pulse 52; Resp 22; Pulse Ox 98% ; vc1 06:00 BP 132 / 80; Pulse 61; Resp 18; Pulse Ox 96% on R/A; vc1 07:48 BP 125 / 83; Pulse 58; Resp 18; Pulse Ox 98% ; ph 03:10 Body Mass Index 29.84 (99.79 kg, 182.88 cm) lp1 [place] Score: 03:15 Eye Response: spontaneous(4). Verbal Response: oriented(5). Motor Response: obeys ja4 commands(6). Total: 15. MDM: 03:15 Patient medically screened. bebeto 03:27 Differential diagnosis: abnormal EKG, acute myocardial infarction, chest wall pain, bebeto Cholelithiasis costochondritis, esophagitis, pancreatitis, stable angina, unstable angina. HEART Score: History: Slightly Suspicious (0), ECG: Normal (0), Age: < or = 45 years (0), Risk Factors: 1 or 2 risk factors (1), [+ Family HX] [Obesity] Troponin: < or = 1 x Normal Limit (0). The patient was given aspirin in the Emergency Department. The patient's deep vein thrombosis risk score was calculated as follows: Total Score: 0. This patient was found to be at low risk for a deep vein thrombosis by using the Well's assessment criteria. The patient's pulmonary embolism risk score was calculated as follows: Total Score: 0-2 points. This patient was found to be at low risk for a pulmonary embolism by using the Well's assessment criteria. ANTHONY Risk Score: not applicable. Data reviewed: vital signs, nurses notes, lab test result(s), EKG, radiologic studies, plain films. Data interpreted: playground monitor: rate is 64 beats/min, rhythm is regular, Pulse oximetry: on room air is 98 %. Test interpretation: by ED physician or midlevel provider: ECG, plain radiologic studies. Counseling: I had a detailed discussion with the patient and/or guardian regarding: the historical points, exam findings, and any diagnostic results supporting the discharge/admit diagnosis, lab results, radiology results, the need for further work-up and treatment in the hospital. 07/07 03:10 Order name: Basic Metabolic Panel; Complete Time: 03:57 lp1 07/07 03:10 Order name: CBC with Diff; Complete Time: 03:41 lp1 07/07 03:10 Order name: Troponin HS; Complete Time: 03:57 lp1 07/07 03:18 Order name: SARS RAPID; Complete Time: 03:57 [facility] 07/07 03:40 Order name: Lipase; Complete Time: 03:57 EDAZ 07/07 03:10 Order name: XRAY Chest (1 view) [facility] 07/07 10:30 Order name: Troponin High Sensitivity [facility] 07/07 10:30 Order name: Lipid Profile [facility] 07/07 10:30 Order name: Thyroid Stimulating Hormone [facility] 07/07 03:10 Order name: EKG; Complete Time: 03:11 lp1 07/07 03:10 Order name: Cardiac monitoring; Complete Time: 03:17 [facility] 07/07 03:10 Order name: EKG - Nurse/Tech; Complete Time: 03:17 [facility] 07/07 03:10 Order name: IV Saline Lock; Complete Time: 03:17 1 07/07 03:10 Order name: Labs collected and sent; Complete Time: 03:17 [facility] 07/07 03:10 Order name: O2 Per Protocol; Complete Time: 03:17 [facility] 07/07 03:10 Order name: O2 Sat Monitoring; Complete Time: 03:17 1 07/07 04:03 Order name: PO challenge: oj; Complete Time: 04:37 bebeto EC:25 Rate is 67 beats/min. Rhythm is regular. QRS [place] is Normal. [place] interval is normal. QRS bebeto interval is normal. QT interval is normal. No Q waves. T waves are Normal. No ST changes noted. Clinical impression: NSR w/ Non-specific ST/T Changes and No evidence of ischemia. Interpreted by me. Reviewed by me. Administered Medications: 03:44 Drug: Aspirin Chewable Tablet 162 mg Route: PO; ja4 06:15 Follow up: Response: No adverse reaction vc1 03:52 Drug: Pepcid (famotidine) 20 mg Route: IVP; Site: right antecubital; ja4 06:15 Follow up: Response: No adverse reaction vc1 03:52 Drug: Lovenox (enoxaparin) 100 mg Route: Sub-Q; Site: abdomen; ja4 06:15 Follow up: Response: No adverse reaction vc1 04:37 Drug: Potassium Effervescent Tablet 25 mEq Route: PO; tw5 06:14 Follow up: Response: No adverse reaction vc1 Disposition Summary: 07/07/22 03:30 Hospitalization Ordered Hospitalization Status: Observation bebeto Provider: Adonis Payton cha Condition: Stable bebeto Problem: new bebeto Symptoms: have improved bebeto Bed/Room Type: Standard [facility] Location: [facility] ER HOLD(07/07/22 09:55) Room Assignment: ERHOLD-(07/07/22 09:55) Diagnosis - Chest pain, unspecified bebeto - Weakness bebeto - Essential (primary) hypertension bebeto - Hypokalemia bebeto Forms: - Medication Reconciliation Form bebeto - SBAR form bebeto Signatures: Dispatcher [employer] EDMS Christian Patterson MD MD cha Smirch, Shelby, RN RN Anna Connolly RN RN lp1 Monet Goldman tw5 Winnie Tee PA PA sb3 Figueroa Doe RN RN ja4 Zoë Cedeno RN vc1 Corrections: (The following items were deleted from the chart) 03:40 03:18 LIPASE+C.LAB.BRZ ordered. EDAZ EDAZ 09:55 03:30 Telemetry/MedSurg (observation) [facility] 09:55 03:30 bebeto
--- NOTE | 2022-07-07 03:30 | ER ---
Nurse's Notes [facility] Name: Dwayne Craig Age: 42 yrs Sex: Male : 1980 Arrival Date: 07/07/2022 Time: 03:02 Bed 6 Private MD: Diagnosis: Chest pain, unspecified;Weakness;Essential (primary) hypertension;Hypokalemia Presentation: 07/07 03:10 Chief complaint: Patient states: Chest pain since about noon yesterday, states feels lp1 like heartburn sensation; Patient reports symptoms of sweating and BP of 160/100 at home. Coronavirus screen: At this time, the client does not indicate any symptoms associated with coronavirus-19. Ebola Screen: No symptoms or risks identified at this time. Initial Sepsis Screen: Does the patient meet any 2 criteria? No. Patient's initial sepsis screen is negative. Does the patient have a suspected source of infection? No. Patient's initial sepsis screen is negative. Risk Assessment: Do you want to hurt yourself or someone else? Patient reports no desire to harm self or others. Onset of symptoms was July 07, 2022. 03:10 Method Of Arrival: Ambulatory lp1 03:10 Acuity: JOSIAH 3 lp1 Triage Assessment: 06:15 General: Behavior is calm, cooperative. General: Appears Behavior is. Pain: Complains vc1 of pain in chest Pain does not radiate. Historical: - Allergies: 03:11 PENICILLINS; lp1 - Home Meds: 03:11 None [Active]; lp1 - PMHx: 03:11 None; lp1 - PSHx: 03:11 None; lp1 - Immunization history:: Adult Immunizations up to date. - Social history:: Smoking status: Patient denies any tobacco usage or history of. - Family history:: not pertinent. Screenin:15 Abuse screen: Denies threats or abuse. Nutritional screening: No deficits noted. ja4 Tuberculosis screening: No symptoms or risk factors identified. Fall Risk None identified. Assessment: 03:15 Also complains of nausea. General: Appears in no apparent distress. uncomfortable. ja4 Pain: Denies pain. Complains of pain in chest Pain does not radiate. Pain currently is 6 out of 10 on a pain scale. Quality of pain is described as pressure, Pain began 2 hours ago. Cardiovascular: No deficits noted. Capillary refill < 3 seconds Patient's skin is warm and dry. Rhythm is sinus rhythm Chest pain. 04:00 Reassessment: Patient appears in no apparent distress at this time. Patient and/or vc1 family updated on plan of care and expected duration. Pain level reassessed. 05:00 Reassessment: No changes from previously documented assessment. Patient and/or family vc1 updated on plan of care and expected duration. Pain level reassessed. 06:13 Reassessment: No changes from previously documented assessment. Patient and/or family vc1 updated on plan of care and expected duration. Pain level reassessed. Patient is alert, oriented x 3, equal unlabored respirations, skin warm/dry/pink. Patient states symptoms have improved. 07:47 Reassessment: Patient appears in no apparent distress at this time. Patient and/or ph family updated on plan of care and expected duration. Pain level reassessed. Patient is alert, oriented x 3, equal unlabored respirations, skin warm/dry/pink. Dr Caicedo at bedside to speak w/ pt, POC is echo cardiogram and stress test while in the hospital. Patient denies pain at this time. 08:52 Reassessment: Patient appears in no apparent distress at this time. Patient and/or ph family updated on plan of care and expected duration. Pain level reassessed. Patient is alert, oriented x 3, equal unlabored respirations, skin warm/dry/pink. Pt taken to cardiology department for stress test and echocardiogram. Vital Signs: 03:10 BP 125 / 89; Pulse 64; Resp 17; Temp 97.9(O); Pulse Ox 98% on R/A; Weight 99.79 kg (R); lp1 Height 6 ft. 0 in. (182.88 cm); Pain 5/10; 04:00 BP 132 / 92; Pulse 56; Resp 18; Pulse Ox 98% ; vc1 05:00 BP 134 / 88; Pulse 52; Resp 22; Pulse Ox 98% ; vc1 06:00 BP 132 / 80; Pulse 61; Resp 18; Pulse Ox 96% on R/A; vc1 07:48 BP 125 / 83; Pulse 58; Resp 18; Pulse Ox 98% ; ph 03:10 Body Mass Index 29.84 (99.79 kg, 182.88 cm) lp1 Vitals: 03:15 Cardiac Rhythm Assessment Regular. ja4 Brittany Coma Score: 03:15 Eye Response: spontaneous(4). Verbal Response: oriented(5). Motor Response: obeys ja4 commands(6). Total: 15. ED Course: 03:02 Patient arrived in ED. ja2 03:05 Figueroa Doe, RN is Primary Nurse. ja4 03:11 Triage completed. lp1 03:11 Arm band placed on. lp1 03:11 Inserted saline lock: 20 gauge in right forearm, using aseptic technique. Blood vc1 collected. 03:12 Patient maintains SpO2 saturation greater than 95% on room air. lp1 03:15 Christian Patterson MD is Attending Physician. bebeto 03:15 Bed in low position. Call light in reach. Adult w/ patient. Client placed on continuous ja4 cardiac and pulse oximetry monitoring. NIBP monitoring applied. 03:15 No provider procedures requiring assistance completed. ja4 03:23 XRAY Chest (1 view) In Process Unspecified. EDMS 03:23 Basic Metabolic Panel Sent. ja4 03:23 CBC with Diff Sent. ja4 03:23 Troponin HS Sent. ja4 03:29 Adonis Payton MD is Hospitalizing Provider. bebeto 03:30 SARS RAPID Sent. ja4 03:44 SARS RAPID Sent. ja4 03:44 Lipase Sent. ja4 07:23 Primary Nurse role handed off by Figueroa Doe, RN 07:24 Emmy Griffin, YANELIS is Primary Nurse. ph 08:53 Patient admitted, IV remains in place. ph Administered Medications: 03:44 Drug: Aspirin Chewable Tablet 162 mg Route: PO; ja4 06:15 Follow up: Response: No adverse reaction vc1 03:52 Drug: Pepcid (famotidine) 20 mg Route: IVP; Site: right antecubital; ja4 06:15 Follow up: Response: No adverse reaction vc1 03:52 Drug: Lovenox (enoxaparin) 100 mg Route: Sub-Q; Site: abdomen; ja4 06:15 Follow up: Response: No adverse reaction vc1 04:37 Drug: Potassium Effervescent Tablet 25 mEq Route: PO; tw5 06:14 Follow up: Response: No adverse reaction vc1 Medication: 03:12 VIS not applicable for this client. lp1 Outcome: 03:30 Decision to Hospitalize by Provider. bebeto 08:53 Admitted to ER Hold. Please see [facility] for further documentation. ph 08:53 Condition: good 08:53 Instructed on the need for admit. 14:41 Patient left the ED. ph Signatures: Dispatcher [employer] EDMS Wendy Cárdenas Corey, MD MD cha Pena, Laura, RN RN lp1 Emmy Griffin RN RN Rosie Leonard Tiffany 5 Zoë Cedeno RN RN vc1 Figueroa Doe RN RN ja4 Corrections: (The following items were deleted from the chart) 03:40 03:30 LIPASE+C.LAB.BRZ drawn and sent. [email or web address] EDNM
[2022-07-07 03:31] LABS: Hematocrit 44.3 % (39.6-49.0); Lymphocytes % 37.8 % (15.3-44.8); MCV 91.9 fL (80-100); MPV 7.9 fL (7.6-11.3); RBC Red Blood Cell Count 4.81 M/uL (4.33-5.43)
[2022-07-07] MEDS ORDERED: ASPIRIN 81 MG CHEWABLE TABLET ONE (03:38)
[2022-07-07 03:44] LABS: Potassium 3.3 mmol/L (3.5-5.1); Troponin High Sensitivity 7.3 pg/mL (<58.9)
[2022-07-07 03:53] LABS: SARS-CoV-2 Antigen Rapid Res Negative (Negative)
[2022-07-07] MEDS ORDERED: FAMOTIDINE 20 MG/2 ML VIAL IV ONE (03:56)
[2022-07-07] MEDS ORDERED: ENOXAPARIN 100 MG/ML SYR SQ ONE (03:56)
[2022-07-07] MEDS ORDERED: POTASSIUM 25 MEQ EFFERV TAB ONE (04:32)
--- NOTE | 2022-07-07 05:00 | P.HP ---
Certification for Inpatient Patient admitted to: Observation With expected LOS: <2 Midnights Patient will require the following post-hospital care: None Practitioner: I am a practitioner with admitting privileges, knowledge of patient current condition, hospital course, and medical plan of care. Services: Services provided to patient in accordance with Admission requirements found in Title 42 Section 412.3 of the Code of Federal Regulations Patient History Date of Service: 07/07/22 Reason for admission: Chest Pain History of Present Illness: Patient is a 42 year old male with no chronic medical problems who presented to the ED with complaints of chest pain. 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 He reports it as substernal and initially thought it felt like heartburn. He states that the pain persisted after 4 hours and was later associated with nausea. He could not sleep tonight because of the continued sensation. He checked his blood pressure and said it was 160/100 and decided to come to the ED. Patient states he has not had lab work in long time. He has no chronic medical problems and does not smoke. He denies family history of CAD but does report HTN in both parents. Troponin HS 7.3. Potassium 3.3. EKG showing NSR. He was given aspirin, lovenox, and supplemental potassium in ED. ED provider wishes to admit patient for observation. Allergies Penicillins Allergy (Mild, Unverified 02/24/17 14:33) Unknown No Known Allergi Allergy (Uncoded 02/24/17 10:46) Unknown Home medications list reviewed: Yes (NA) - Past Medical/Surgical History Diabetic: No Past Medical History: Patient denies medical history Past Surgical History: Patient denies surgical history Psychosocial/ Personal History: Patient is . - Family History Mother -: Hypertension, Other (see notes) (afib) Father -: Hypertension - Social History Smoking Status: Never smoker Alcohol use: Yes CD- Drugs: No Caffeine use: Yes Place of Residence: Home Review of Systems General: Sweats Cardiovascular: Chest Pain Gastrointestinal: Nausea Physical Examination - Physical Exam General: Alert, In no apparent distress HEENT: Atraumatic, PERRLA, Mucous membr. moist/pink, EOMI, Sclerae nonicteric Neck: Supple, 2+ carotid pulse no bruit, No LAD, Without JVD or thyroid abn ormality Respiratory: Clear to auscultation bilaterally, Normal air movement Cardiovascular: No edema, Regular rate/rhythm, Normal S1 S2 Gastrointestinal: Normal bowel sounds, No tenderness Musculoskeletal: No tenderness Integumentary: No rashes Neurological: Normal speech, Normal strength at 5/5 x4 extr, Normal tone, Normal affect - Studies Laboratory Data (last 24 hrs) 07/07/22 03:18: Lipase Cancelled 07/07/22 03:11: WBC 7.90, Hgb 15.0, Hct 44.3, Plt Count 244 07/07/22 03:11: Sodium 141, Potassium 3.3 L, BUN 14, Creatinine 0.99, Glucose 114 H, Lipase 117 Assessment and Plan - Problems (Diagnosis) (1) Chest pain, rule out acute myocardial infarction Current Visit: Yes Status: Acute (2) Hypokalemia Current Visit: Yes Status: Acute - Plan -Chest pain resolved at this time -Initial troponin negative. Trend -Monitor on telemetry -Cardiology consulted -Echo ordered -Lipid panel and TSH -Monitor and replete electrolytes per protocol -Lovenox for VTE ppx -Full code Discharge Plan: Home Plan to discharge in: 24 Hours - Advance Directives Does patient have a Living Will: No Does patient have a Durable POA for Healthcare: No - Code Status/Comfort Care Code Status Assessed: Yes (Full) Critical Care: No Time Spent Managing Pts Care (In Minutes): 50
[2022-07-07] MEDS ORDERED: ACETAMINOPHEN 500 MG TAB PO PRN (08:49)
[2022-07-07] MEDS ORDERED: ONDANSETRON 4 MG/2 ML VIAL IV PRN (08:49)
[2022-07-07] MEDS ORDERED: ENOXAPARIN 40 MG/0.4 ML SQ SCH (09:00)
[2022-07-07 10:30] LABS: Thyroid Stimulating Hormone 1.45 uIU/mL (0.360-3.740); Troponin High Sensitivity 5.6 pg/mL (<58.9)
--- NOTE | 2022-07-07 11:41 | CON ---
Date of Consultation: 07/07/2022 Admitted on 07/07/2022 in the emergency room with chest pain. I saw the patient on 07/07/2022. History Of Present Illness: Mr. Craig is 42. Has a history of hypertension, borderline dyslipidemi a, dyslipidemia, but does not take any medications. He has a family history of atrial fibrillation a nd hypertension. Came in with substernal chest pressure that had gone off for approximately 36 hours with some nausea, some diaphoresis, but no shortness of breath, PND, orthopnea, pedal edema, palpita tion, or syncope. Symptoms were not exertional. He has been under stress at work. He already ruled out with a normal EKG, normal x-ray, and normal troponin. Past Medical History: As stated above. Allergies: HE IS ALLERGIC TO PENICILLIN. Review of Systems: Negative. Social History: Negative. Family History: Positive for atrial fibrillation and hypertension. Physical Examination: Vital Signs: Stable, afebrile. HEENT: Negative. Neck: Supple with no bruit, lymphadenopathy, JVD, or thyromegaly. Chest: Clear to auscultation and percussion. Cardiac: Revealed a regular rhythm and rate. No murmurs, gallops, or rubs. Abdomen: Benign. Extremities: Revealed no clubbing, cyanosis, or edema. Diagnostic Data: Normal. Impression And Plan: Atypical chest pain, more likely related to gastroesophageal reflux disease. S ymptoms lasted for almost 36 hours, yet he still had normal EKG and normal troponin. I recommended a 2D echocardiogram and a routine stress test on him today before he leaves. NATALY/PEDRO Voice ID: [id number] Report ID: [id number]
--- NOTE | 2022-07-07 13:35 | RAD REPORT ---
EXAM DESCRIPTION: RAD - Chest Single View - 07/07/2022 3:21 am CLINICAL HISTORY: The patient is 42 years old and is Male; SOB TECHNIQUE: Frontal view of the chest. COMPARISON: No relevant prior studies available. FINDINGS: Lungs: Unremarkable. No consolidation. Pleural space: Unremarkable. No pneumothorax. Heart: Unremarkable. Mediastinum: Unremarkable. Bones/joints: Unremarkable. IMPRESSION: No acute findings in the chest. Electronically signed by: Milton Caballero MD 07/07/2022 3:29 AM CDT Due to temporary technical issues with the PACS/Fluency reporting system, reports are being signed by the in house radiologists without review as a courtesy to insure prompt reporting. The interpreting radiologist is fully responsible for the content of the report
--- NOTE | 2022-07-07 13:48 | EKG ---
Test Date: 2022-07-07 Test Time: 03:13:52 Return Agent Airport: [place] MEASUREMENT RESULTS: Intervals: Rate: 67 MT: 186 QRSD: 86 QT: 412 QTc: 435 [place]: P: 40 MT: 186 QRS: -56 T: 21 INTERPRETIVE STATEMENTS: Normal sinus rhythm Left anterior fascicular block Anterior infarct, age undetermined Abnormal ECG Compared to ECG 12/25/2021 17:04:46 No significant changes Electronically Signed On 07-07-22 13:47:46 CDT by Luis Bowers
--- NOTE | 2022-07-07 14:15 | TREADMILL ---
70% H.R.: 125 85% H.R.: 151 90% H.R.: 160 100% H.R.: 178 DX: CHEST PAIN Date of Study: 07/07/2022 Ht: 6' 0 " Wt: 219 lb 15.989 oz Consulting Physician: ISABELLA MEDICATIONS: ASPIRIN HISTORY: 42 YEAR OLD MALE IN COMPLAINTS OF CHEST PAIN. NO HISTORY OF PREMANENT PACEMAKER. ALLERGY TO PENICILLIN. PHYSICIAL EXAMINATION: RESTING B.P.: 133/94 RESTING H.R.: 63 RESTING EKG: NORMAL SINUS RHYTHM, WITHIN NORMAL LIMITS PROTOCOL: MEDINA EXERCISE TIME: 6:59 MAXIMUM HEART RATE: 162 91 % OF PREDICTED B.P. AT PEAK STRESS: 208/94 H.R. AT 1 MINUTE POST EXERCISE: 90 IMPRESSION: NORMAL SINUS RHYTHM. NO SUPRAVENTRICULAR TACHYCARDIA, VENTRICULAR TACHYCARDIA, PREMATURE ATRIAL COMPLEXES OR PREMATURE VENTRICULAR COMPLEXES NOTED. OCCASIONAL PREMATURE VENTRICULAR COMPLEXES NOTED IN RECOVERY. NO ELECTROCARDIOGRAM CHANGES OF ISCHEMIA.
--- NOTE | 2022-07-07 14:18 | ECHO ---
HEIGHT: 6 ft 0 in WEIGHT: 219 lb 15.989 oz DATE OF STUDY: 07/07/[address]: Herson Whitman MD 2-DIMENSIONAL: YES M.MODE: YES DOPPLER: YES COLOR FLOW: YES TDS: PORTABLE: YES DEFINITY: BUBBLE STUDY: DIAGNOSIS: CHEST PAIN CARDIAC HISTORY: CATHERIZATION: NO SURGERY: NO PROSTHETIC VALVE: NO PACEMAKER: NO MEASUREMENTS (cm) DIASTOLIC (NORMALS) SYSTOLIC (NORMALS) IVSd 1.0 (0.6-1.2) LA Diam 3.0 (1.9-4.0) LVEF 60-65% LVIDd 3.7 (3.5-5.7) LVIDs 2.1 (2.0-3.5) %FS 44% LVPWd 1.1 (0.6-1.2) Ao Diam 2.8 (2.0-3.7) 2 DIMENSIONAL ASSESSMENT: RIGHT ATRIUM: NORMAL LEFT ATRIUM: NORMAL RIGHT VENTRICLE: NORMAL LEFT VENTRICLE: NORMAL TRICUSPID VALVE: MILD TRICUSPID REGURGITATION MITRAL VALVE: MILD MITRAL REGURGITATION PULMONIC VALVE: NORMAL AORTIC VALVE: NORMAL PERICARDIAL EFFUSION: NONE AORTIC ROOT: NORMAL LEFT VENTRICULAR WALL MOTION: NORMAL DOPPLER/COLOR FLOW: MILD TRICUSPID REGURGITATION. MILD MITRAL REGURGITATION. COMMENTS: NORMAL LEFT VENTRICULAR EJECTION FRACTION 60-65%. NORMAL WALL MOTION. MILD MITRAL REGURGITATION, TRICUSPID REGURGITATION. NORMAL DIASTOLIC FUNCTION. TECHNOLOGIST: BARBER RAMIRES
[2022-07-07 14:53] VITALS: TEMP 97.9
[2022-07-07 15:01] VITALS: BP 125/83; O2SAT 98
== END 2022-07-07 14:37 | disposition home or self-care (01) ==
LOC: ER 02:59 → ERHOLD 04:47
PROVIDERS: ADMIT Hospitalist; ATTEND Hospitalist
DX: R07.89 Other chest pain (principal); I10 Essential (primary) hypertension; E87.6 Hypokalemia; Z88.0 Allergy status to penicillin; Z20.822 Contact with and (suspected) exposure to COVID-19; Z82.49 Family history of ischemic heart disease and other diseases of the circulatory system
CPT/HCPCS: 36415; 71045; 80048; 80061; 83690; 84443; 84484; 85025; 87811; 93005; 93017; 93306; 96372; 96374; 99285; G0378; J1650

== ENCOUNTER 2024-04-26 18:42 | Emergency (ER) | payer SELFPAY ==
[2024-04-26] MEDS ORDERED: MORPHINE 4 MG/ML SYR ONE (19:41)
[2024-04-26 20:06] LABS: Absolute Eosinophils 0.2 K/uL (0-0.5); Absolute Lymphocytes (CBC) 2.2 K/uL (0.7-4.9); Absolute Monocytes 0.5 K/uL (0.1-1.3); Absolute Neutrophil 4.5 K/uL (1.8-8.0); Basophils % 0.3 % (0-1.3); Eosinophils % 2.5 % (0-4.4); Hematocrit 44.1 % (39.6-49.0); Hemoglobin 15.1 g/dL (13.6-17.9); Lymphocytes % 29.9 % (15.3-44.8); MCH 31.6 pg (27.0-35.0); MCHC 34.2 g/dL (32.0-36.0); MCV 92.5 fL (80-100); MPV 7.9 fL (7.6-11.3); Monocytes % 6.2 % (3.3-12.3); Neutrophils % 61.1 % (41.7-73.7); Nucleated Red Blood Cells % 0.1 % (0-0); Platelets 223 thou/uL (152-406); RBC Red Blood Cell Count 4.77 M/uL (4.33-5.43); Red Cell Distribution Width 12.5 % (12.1-15.2)
[2024-04-26 20:25] LABS: Albumin 3.6 g/dL (3.4-5.0); Albumin/Globulin Ratio 0.8 (1.1-1.8); Anion Gap 9.6 mEq/L (5.0-15.0); Bilirubin Direct 2.3 mg/dL (0-0.2); Bilirubin Indirect, Calculated 1.5 mg/dL (0.2-0.8); Bilirubin Total 3.8 mg/dL (0.2-1.0); Globulin 4.4 g/dL (2.3-3.5); Magnesium 2.3 mg/dL (1.6-2.4); Potassium 3.6 mEq/L (3.5-5.1); Troponin High Sensitivity 3.1 pg/mL (<58.9)
--- NOTE | 2024-04-26 21:29 | RAD REPORT ---
EXAM DESCRIPTION: [place] Single View04/26/2024 8:01 pm CLINICAL HISTORY: CHEST PAIN COMPARISON: Chest Single View dated 07/07/2022; Chest Single View dated 12/25/2021; Chest Single View dated 10/12/2019; CHEST PA AND LAT 2 VIEW dated 05/21/2015 TECHNIQUE: Portable AP view of the chest. FINDINGS: Decreased inspiratory effort limits evaluation and results in crowding of the central vasc ular markings. The lungs are otherwise clear. No pneumothorax or effusion. The cardiomediastinal con tours are unremarkable. IMPRESSION: No acute cardiopulmonary process.
--- NOTE | 2024-04-26 22:00 | RAD REPORT ---
EXAM DESCRIPTION: CT - Abdomen Pelvis W Contrast - 04/26/2024 8:57 pm CLINICAL HISTORY: ABD PAIN COMPARISON: No comparisons TECHNIQUE: Thin cut axial CT imaging of the abdomen and pelvis was performed following intravenous a dministration of iodinated contrast. Multiplanar reformats were generated and reviewed. All CT scans are performed using dose optimization technique as appropriate and may include automated exposure control or mA/KV adjustment according to patient size. FINDINGS: No suspicious findings in the lung bases. The liver, spleen, adrenal glands, and pancreas show no suspicious findings. Gallbladder unremarkable . Mildly prominent common duct, measuring 7 mm in caliber. 4 mm calcific focus along the second part of the duodenum which could possibly be at the level of the ampulla. Symmetric renal function is seen with no hydronephrosis or suspicious renal mass. Short segments of dilated central abdominal small bowel with fecalization. No focal transition point. Appendix is unremarkable. No bowel wall thickening. No free air, free fluid or inflammatory strandin g. No hernia, mass or bulky lymphadenopathy. The urinary bladder is without significant finding. No suspicious bony findings. IMPRESSION: Short segments of dilated central abdominal small bowel, may reflect enteritis. Mildly prominent common bile duct, with a 4 millimeter calcific focus along the second part of the du odenum, could represent a distal common bile duct stone. Please correlate with bilirubin levels.
[2024-04-26] MEDS ORDERED: METOCLOPRAMIDE 10 MG/2mL INJ ONE (22:21)
[2024-04-26] MEDS ORDERED: NA CHLORIDE 0.9% 50 ML ONE (22:21)
[2024-04-26] MEDS ORDERED: PANTOPRAZOLE 40 MG INJ ONE (22:21)
[2024-04-26] MEDS ORDERED: FAMOTIDINE 20 MG/2 ML VIAL IV ONE (22:21)
--- NOTE | 2024-04-26 23:05 | RAD REPORT ---
EXAM DESCRIPTION: US - Abdomen Exam Limited - 04/26/2024 10:25 pm CLINICAL HISTORY: CBD stone;Abd pain COMPARISON: Abdomen Pelvis W Contrast dated 04/26/2024 TECHNIQUE: Sonographic grayscale and color flow images of the right upper abdominal quadrant were o btained. FINDINGS: The gallbladder demonstrates no gallstones. No pericholecystic fluid or gallbladder wall t hickening. The common bile duct is normal measuring 5 mm. No filling defects within the visualized co mmon bile duct. The liver demonstrates no findings of intrahepatic biliary dilatation. IMPRESSION: No significant intra or extrahepatic biliary ductal dilation on ultrasound. No filling d efects within the visualized common bile duct.
--- NOTE | 2024-04-26 23:25 | EDPHYS ---
Physician Documentation [facility] Name: Dwayne Craig Age: 44 yrs Sex: Male : 1980 Arrival Date: 04/26/2024 Time: 18:42 Bed 6 Private MD: ED Physician Preston Del Angel HPI: 04/26 19:00 This 44 yrs old Male presents to ER via Ambulatory with complaints of Chest Pain, ms3 Breathing Difficulty. 19:00 44-year-old male with no past medical history presents to the emergency department for ms3 epigastric abdominal pain radiating to his chest. Patient states the pain began on Wednesday and he rates his pain a 9/10. Patient states that eating makes the pain worse. He endorses nausea, shortness of breath, chest pain. He denies vomiting or diarrhea. Patient denies any alleviating factors. Historical: - Allergies: 18:53 PENICILLINS; as6 - PMHx: 18:53 None; as6 - PSHx: 18:53 None; as6 - Immunization history:: Adult Immunizations not up to date. - Infectious Disease History:: Denies. - Social history:: Smoking status: Patient denies any tobacco usage or history of. ROS: 19:00 Constitutional: Negative for fever, and chills. Neck: Negative for injury, pain, and ms3 swelling, Cardiovascular: Negative for chest pain, and palpitations. Respiratory: Negative for shortness of breath, cough, wheezing, and pleuritic chest pain, 19:00 MS/Extremity: Negative for injury and deformity, Skin: Negative for injury, rash, and discoloration, 19:00 Abdomen/GI: Positive for abdominal pain, nausea, Exam: 19:00 Constitutional: This is a well developed, well nourished patient who is awake, alert, ms3 and in no acute distress. Neck: Trachea midline, no cervical lymphadenopathy. Supple, full range of motion without nuchal rigidity, or vertebral point tenderness. No Meningismus. Chest/axilla: Normal chest wall appearance and motion. Nontender with no deformity. Cardiovascular: Regular rate and rhythm with a normal S1 and S2. No gallops, murmurs, or rubs. Normal PMI, no JVD. No pulse deficits. Respiratory: Lungs have equal breath sounds bilaterally, clear to auscultation and percussion. No rales, rhonchi or wheezes noted. No increased work of breathing, no retractions or nasal flaring. 19:00 ECG was reviewed by the Attending Physician. 19:00 Abdomen/GI: Inspection: abdomen appears normal, Bowel sounds: normal, Palpation: moderate abdominal tenderness, in the epigastric area, Vital Signs: 18:52 BP 150 / 104; Pulse 62; Resp 18 S; Temp 97.8(TE); Pulse Ox 99% on R/A; Weight 103.42 kg as6 (R); Height 6 ft. 0 in. (R); Pain 9/10; 20:25 BP 140 / 89; Pulse 69; Resp 16; Pulse Ox 99% ; vc1 23:22 BP 121 / 88; Pulse 74; Resp 19; Pulse Ox 96% on R/A; kd3 04/27 00:47 BP 111 / 68; Pulse 54; Resp 19; Pulse Ox 96% on R/A; kd3 02:06 BP 146 / 83; Pulse 59; Resp 18; Pulse Ox 98% ; vc1 04/26 18:52 Body Mass Index 30.92 (103.42 kg, 182.88 cm) as6 12 18:52 Pain Scale: Adult as6 MDM: 04/26 18:59 Patient medically screened. ms3 19:02 Differential diagnosis: abnormal EKG, acute myocardial infarction, pericarditis. ms3 19:58 Transition of care: After a detail discussion of the patient's case, care is ms3 transferred to Preston Del Angel MD. 21:37 ED course: EXAM DESCRIPTION: [facility] Single View04/26/2024 8:01 pm CLINICAL HISTORY: sp4 CHEST PAIN COMPARISON: Chest Single View dated 07/07/2022; Chest Single View dated 12/25/2021; Chest Single View dated 10/12/2019; CHEST PA AND LAT 2 VIEW dated 05/21/2015 TECHNIQUE: Portable AP view of the chest. FINDINGS: Decreased inspiratory effort limits evaluation and results in crowding of the central vascular markings. The lungs are otherwise clear. No pneumothorax or effusion. The cardiomedi astinal contours are unremarkable. IMPRESSION: No acute cardiopulmonary process. . 23:16 ED course: EXAM DESCRIPTION: US - Abdomen Exam Limited - 04/26/2024 10:25 pm CLINICAL sp4 HISTORY: CBD stone;Abd pain COMPARISON: Abdomen Pelvis W Contrast dated 04/26/2024 TECHNIQUE: Sonographic grayscale and color flow images of the right upper abdominal quadrant were obtained. FINDINGS: The gallbladder demonstrates no gallstones. No pericholecystic fluid or gallbladder wall thickening. The common bile duct is normal measuring 5 mm. No filling defects within the visualized common bile duct. The liver demonstrates no findings of intrahepatic biliary dilatation. IMPRESSION: No significant intra or extrahepatic biliary ductal dilation on ultrasound. No filling defects within the visualized common bile duct . ED course: EXAM DESCRIPTION: CT - Abdomen Pelvis W Contrast - 04/26/2024 8:57 pm CLINICAL HISTORY: ABD PAIN COMPARISON: No comparisons TECHNIQUE: Thin cut axial CT imaging of the abdomen and pelvis was performed following intravenous administration of iodinated contrast. Multiplanar reformats were generated and reviewed. All CT scans are performed using dose optimization technique as appropriate and may include automated exposure control or mA/KV adjustment according to patient size. FINDINGS: No suspicious findings in the lung bases. The liver, spleen, adrenal glands, and pancreas show no suspicious findings. Gallbladder unremarkable. Mildly prominent common duct, measuring 7 mm in caliber. 4 mm calcific focus along the second part of the duodenum which could possibly be at the level of the ampulla. Symmetric renal function is seen with no hydronephrosis or suspicious renal mass. Short segments of dilated central abdominal small bowel with fecalization. No focal transition point. Appendix is unremarkable. No bowel wall thickening. No free air, free fluid or inflammatory stranding. No hernia, mass or bulky lymphadenopathy. The urinary bladder is without significant finding. No suspicious bony findings. IMPRESSION: Short segments of dilated central abdominal small bowel, may reflect enteritis. Mildly prominent common bile duct, with a 4 millimeter calcific focus along the second part of the duodenum, could represent a distal common bile duct stone. Please correlate with bilirubin levels.. 23:25 HEART Score: History: Slightly Suspicious (0), ECG: Normal (0), Age: < or = 45 years sp4 (0), Risk Factors: No Risk Factors Known (0), Troponin: < or = 1 x Normal Limit (0), Total Score = 0. Data reviewed: vital signs, nurses notes, old medical records, lab test result(s), EKG, radiologic studies. ED course: Patient has abnormal CT findings consistent with 4 mm bile duct stone. Also there is hyperbilirubinemia and elevated liver enzymes. Ultrasound is normal however our tarring machine operator recommends transfer for either MRCP or ERCP. At this time there is no capacity at this hospital to perform ERCP. Patient states he is okay with the transfer. Will organize transfer to [facility] or higher level of care facility.. 06 18:59 Order name: Basic Metabolic Panel; Complete Time: 20:38 ms3 04/26 18:59 Order name: CBC with Diff; Complete Time: 20:38 ms3 04/26 18:59 Order name: LFT's; Complete Time: 20:38 ms3 04/26 18:59 Order name: Magnesium; Complete Time: 20:38 ms3 04/26 18:59 Order name: Troponin HS; Complete Time: 20:38 ms3 12 19:00 Order name: Lipase; Complete Time: 20:38 ms3 04/26 18:59 Order name: XRAY Chest (1 view); Complete Time: 22:07 ms3 04/26 19:00 Order name: CT Abd/Pelvis - IV Contrast Only; Complete Time: 22:07 ms3 04/26 22:09 Order name: US Abdomen Limited; Complete Time: 23:15 sp4 04/26 18:59 Order name: Cardiac monitoring; Complete Time: 19:32 ms3 04/26 18:59 Order name: EKG - Nurse/Tech; Complete Time: 19:10 ms3 04/26 18:59 Order name: IV Saline Lock; Complete Time: 19:53 ms3 04/26 18:59 Order name: Labs collected and sent; Complete Time: 19:53 ms3 04/26 18:59 Order name: O2 Per Protocol; Complete Time: 19:32 ms3 04/26 18:59 Order name: O2 Sat Monitoring; Complete Time: 19:32 ms3 04/26 23:55 Order name: NPO; Complete Time: 00:24 sp4 EC:00 Rate is 64 beats/min. Rhythm is regular. QRS Hermon is Normal. NH interval is normal. QRS ms3 interval is normal. Clinical impression: Normal ECG. Interpreted by me. Reviewed by me. Administered Medications: 19:52 Drug: morphine IVP or IV 4 mg IVP once over 4 mins Route: IVP; Infused Over: 4 mins; vc1 Site: right antecubital; 04/27 02:08 Follow up: Response: No adverse reaction; Marked relief of symptoms vc1 04/26 22:28 Drug: metoCLOPramide IVP 10 mg IVP once; over 1 to 2 minutes Route: IVP; Site: right vc1 upper arm; 04/27 02:07 Follow up: Response: No adverse reaction; Marked relief of symptoms vc1 04/26 22:29 Drug: Famotidine IVP 20 mg IVP once; dilute with 10 mL 0.9% NaCl; give over 2 minutes vc1 Route: IVP; Site: right upper arm; 04/27 02:07 Follow up: Response: No adverse reaction; Marked relief of symptoms vc1 04/26 22:29 Drug: Pantoprazole IVP 40 mg IVP once Route: IVP; Site: right upper arm; vc1 04/27 02:07 Follow up: Response: No adverse reaction; Marked relief of symptoms vc1 00:24 Drug: NS 0.9% IV 1000 ml IV at 1 bolus Per protocol; 1000 mL bolus Route: IV; Rate: 1 kd3 bolus; Site: right antecubital; 02:07 Follow up: IV Status: Completed infusion; IV Intake: 1000ml vc1 00:24 Drug: NS 0.9% IV 1000 ml IV at 125 ml/hr continuous Route: IV; Rate: 125 ml/hr; Site: kd3 right antecubital; Disposition Summary: 04/26/24 23:25 Transfer Ordered Notes: Transfer Location: [facility] sp4 Reason: Higher level of care sp4 Condition: Stable sp4 Problem: new sp4 Symptoms: have improved sp4 Accepting Physician: [facility]'s tarring machine operator and hot dip plater(04/27/24 03:11) kd3 Diagnosis - Other cholelithiasis with obstruction sp4 - Abnormal findings on diagnostic imaging of liver and biliary tract sp4 - Nonspecific reactive hepatitis sp4 - Acute hepatitis, acute hyperbilirubinemia, acute common bile duct stone sp4 Forms: - Medication Reconciliation Form sp4 - SBAR form sp4 Signatures: Dispatcher [employer] EDAdalberto Parker DO DO ms3 Betito Manley RN RN as6 Ivone Gale RN RN kd3 Zoë Cedeno RN RN vc1 Preston Del Angel MD MD sp4 Corrections: (The following items were deleted from the chart) 04/26 19:00 19:00 Chest Single View+RAD.RAD.BRZ ordered. EDMS EDMS 22: 22:09 Abdomen Limited+US.RAD.BRZ ordered. EDMS EDMS 04/27 03:11 04/26 23:25 [facility] tarring machine operator and hot dip plater sp4 kd3
--- NOTE | 2024-04-26 23:25 | ER ---
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 Coronavirus screen: At as6 this time, the client does not indicate any symptoms associated with coronavirus-19. Ebola Screen: No symptoms or risks identified at this time. Initial Sepsis Screen: Does the patient meet any 2 criteria? No. Patient's initial sepsis screen is negative. Does the patient have a suspected source of infection? No. Patient's initial sepsis screen is negative. Risk Assessment: Do you want to hurt yourself or someone else? Patient reports no desire to harm self or others. Onset of symptoms was April 26, 2024. 18:52 Acuity: JOSIAH 2 as6 18:52 Method Of Arrival: Ambulatory as6 Historical: - Allergies: 18:53 PENICILLINS; as6 - PMHx: 18:53 None; as6 - PSHx: 18:53 None; as6 - Immunization history:: Adult Immunizations not up to date. - Infectious Disease History:: Denies. - Social history:: Smoking status: Patient denies any tobacco usage or history of. Screenin:00 [facility] ED Fall Risk Assessment (Adult) History of falling in the last 3 months, vc1 including since admission No falls in past 3 months (0 pts) Confusion or Disorientation No (0 pts) Intoxicated or Sedated No (0 pts) Impaired Gait No (0 pts) Mobility Assist Device Used No (0 pt) Altered Elimination No (0 pt) Score/Fall Risk Level 0 - 2 = Low Risk Oriented to surroundings, Maintained a safe environment, Educated pt \T\ family on fall prevention, incl call for assistance when getting out of bed. Abuse screen: Denies threats or abuse. Nutritional screening: No deficits noted. Tuberculosis screening: No symptoms or risk factors identified. Assessment: 19:00 General: Appears in no apparent distress. uncomfortable, well groomed, well developed, vc1 well nourished, Behavior is calm, cooperative, appropriate for age. Pain: Complains of pain in epigastric area Pain does not radiate. Pain currently is 8 out of 10 on a pain scale. Quality of pain is described as dull, pressure, Pain began gradually, Is continuous, Aggravated by eating, drinking, Noted to be grimacing, guarding, Also complains of no other associated symptoms. Neuro: Level of Consciousness is awake, alert, obeys commands, Oriented to person, place, time, situation, Appropriate for age. Cardiovascular: Capillary refill < 3 seconds Patient's skin is warm and dry. Rhythm is sinus rhythm. Respiratory: Airway is patent Respiratory effort is even, unlabored, Respiratory pattern is regular, symmetrical, Breath sounds are clear bilaterally. GI: Abdomen is round non-distended, Abd is soft Abdomen is tender to palpation in epigastric area and right upper quadrant. GI: Bowel sounds present X 4 quads. : No deficits noted. No signs and/or symptoms were reported regarding the genitourinary system. EENT: No deficits noted. No signs and/or symptoms were reported regarding the EENT system. Derm: Skin is intact, is healthy with good turgor, Skin is dry, Skin is normal, Skin temperature is warm. Musculoskeletal: No deficits noted. No signs and/or symptoms reported regarding the musculoskeletal system. Circulation, motion, and sensation intact. Range of motion: intact in all extremities. 23:22 Reassessment: Patient and/or family updated on plan of care and expected duration. Pain kd3 level reassessed. Patient is alert, oriented x 3, equal unlabored respirations, skin warm/dry/pink. Patient states feeling better. Patient states symptoms have improved. 04/27 02:06 Reassessment: Patient appears in no apparent distress at this time. No changes from vc1 previously documented assessment. Patient and/or family updated on plan of care and expected duration. Pain level reassessed. Patient is alert, oriented x 3, equal unlabored respirations, skin warm/dry/pink. Vital Signs: 04/26 18:52 BP 150 / 104; Pulse 62; Resp 18 S; Temp 97.8(TE); Pulse Ox 99% on R/A; Weight 103.42 kg as6 (R); Height 6 ft. 0 in. (R); Pain 9/10; 20:25 BP 140 / 89; Pulse 69; Resp 16; Pulse Ox 99% ; vc1 23:22 BP 121 / 88; Pulse 74; Resp 19; Pulse Ox 96% on R/A; kd3 04/27 00:47 BP 111 / 68; Pulse 54; Resp 19; Pulse Ox 96% on R/A; kd3 02:06 BP 146 / 83; Pulse 59; Resp 18; Pulse Ox 98% ; vc1 04/26 18:52 Body Mass Index 30.92 (103.42 kg, 182.88 cm) as6 04/26 18:52 Pain Scale: Adult as6 ED Course: 04/26 18:44 Patient arrived in ED. mg5 18:50 Adalberto Ramirez DO is Attending Physician. ms3 18:52 Arm band placed on right wrist. as6 18:53 Triage completed. as6 19:00 Patient has correct armband on for positive identification. Bed in low position. Call vc1 light in reach. vehicle monitor technician on. Pulse ox on. NIBP on. 19:10 EKG done, by ED staff, reviewed by Adalberto Ramirez DO. as6 19:52 Zoë Cedeno, RN is Primary Nurse. vc1 19:53 Basic Metabolic Panel Sent. vc1 19:53 CBC with Diff Sent. vc1 19:53 LFT's Sent. vc1 19:53 Magnesium Sent. vc1 19:53 Troponin HS Sent. vc1 19:53 Inserted saline lock: 22 gauge in right upper arm, using aseptic technique. vc1 19:59 Attending Physician role handed off by Adalberto Ramirez DO ms3 19:59 Preston Del Angel MD is Attending Physician. ms3 20:03 XRAY Chest (1 view) In Process Unspecified. EDMS 20:24 No provider procedures requiring assistance completed. O2 via room air. vc1 20:56 CT Abd/Pelvis - IV Contrast Only In Process Unspecified. EDMS 22:27 US Abdomen Limited In Process Unspecified. EDMS 23:23 initiated transfer with Milton at [facility] . [facility] 04/27 02:25 pt was accepted to [facility] room 15669. admin approval given by Milton P \T\ [id number]. [facility] Accepting Devika Lerma \T\[id number]. number for nurse to nurse report [phone]. Faxed facesheet. [facility] to transfer pt. Administered Medications: 04/26 19:52 Drug: morphine IVP or IV 4 mg IVP once over 4 mins Route: IVP; Infused Over: 4 mins; vc1 Site: right antecubital; 04/27 02:08 Follow up: Response: No adverse reaction; Marked relief of symptoms vc1 04/26 22:28 Drug: metoCLOPramide IVP 10 mg IVP once; over 1 to 2 minutes Route: IVP; Site: right vc1 upper arm; 04/27 02:07 Follow up: Response: No adverse reaction; Marked relief of symptoms vc1 04/26 22:29 Drug: Famotidine IVP 20 mg IVP once; dilute with 10 mL 0.9% NaCl; give over 2 minutes vc1 Route: IVP; Site: right upper arm; 04/27 02:07 Follow up: Response: No adverse reaction; Marked relief of symptoms vc1 04/26 22:29 Drug: Pantoprazole IVP 40 mg IVP once Route: IVP; Site: right upper arm; vc1 04/27 02:07 Follow up: Response: No adverse reaction; Marked relief of symptoms vc1 00:24 Drug: NS 0.9% IV 1000 ml IV at 1 bolus Per protocol; 1000 mL bolus Route: IV; Rate: 1 kd3 bolus; Site: right antecubital; 02:07 Follow up: IV Status: Completed infusion; IV Intake: 1000ml vc1 00:24 Drug: NS 0.9% IV 1000 ml IV at 125 ml/hr continuous Route: IV; Rate: 125 ml/hr; Site: 3 right antecubital; Medication: 04/26 20:24 VIS not applicable for this client. vc1 Intake: 04/27 02:07 IV: 1000ml; Total: 1000ml. vc1 Outcome: 04/26 23:25 ER care complete, transfer ordered by spLisbet 04/27 03:11 Patient left the ED. kd3 Signatures: Dispatcher [employer] EDMS Adalberto Ramirez DO DO ms3 Betito Manley RN RN as6 Ivone Gale RN RN kd3 Zoë Cedeno RN RN vc1 Preston Del Angel MD MD sp4 Anat Quevedo mg5 Rubi Wilder [facility]
[2024-04-27] MEDS ORDERED: NA CHLORIDE 0.9% 2,000 ML ONE (00:06)
[2024-04-27 03:44] VITALS: BP 146/83; TEMP 97.8; O2SAT 98
--- NOTE | 2024-05-01 15:11 | EKG ---
Test Date: 2024-04-26 Test Time: 18:58:11 Inbound Ingredient Logistics Specialist: MEASUREMENT RESULTS: Intervals: Rate: 64 [place]: 168 QRSD: 80 QT: 398 QTc: 410 [place]: P: 52 [place]: 168 QRS: -22 T: 25 INTERPRETIVE STATEMENTS: Normal sinus rhythm Anterior infarct, age undetermined Abnormal ECG Compared to ECG 07/07/2022 03:13:52 Left anterior fascicular block no longer present Myocardial infarct finding still present Electronically Signed On 05-01-24 14:56:53 CDT by Luis Bowers
== END 2024-04-27 03:11 | disposition short-term general hospital (02) ==
LOC: ER 18:42
DX: K80.81 Other cholelithiasis with obstruction (principal); B17.9 Acute viral hepatitis, unspecified; K80.50 Calculus of bile duct without cholangitis or cholecystitis without obstruction; R93.2 Abnormal findings on diagnostic imaging of liver and biliary tract; E80.6 Other disorders of bilirubin metabolism
CPT/HCPCS: 36415; 71045; 74177; 76705; 80048; 80076; 83690; 83735; 84484; 85025; 93005; 99285; C9113; J2765; J7030; Q9967

== ENCOUNTER 2024-10-18 20:46 | Emergency (ER) | payer SELFPAY ==
[2024-10-18 21:19] LABS: Absolute Basophils 0.1 K/uL (0-0.5); Absolute Eosinophils 0.1 K/uL (0-0.5); Absolute Lymphocytes (CBC) 2.6 K/uL (0.7-4.9); Absolute Neutrophil 11.3 K/uL (1.8-8.0); Basophils % 0.6 % (0-1.3); Eosinophils % 0.7 % (0-4.4); Hematocrit 45.2 % (39.6-49.0); Hemoglobin 15.3 g/dL (13.6-17.9); Lymphocytes % 17.2 % (15.3-44.8); MCH 30.4 pg (27.0-35.0); MCV 89.4 fL (80-100); MPV 7.3 fL (7.6-11.3); Monocytes % 6.5 % (3.3-12.3); Platelets 242 thou/uL (152-406); RBC Red Blood Cell Count 5.06 M/uL (4.33-5.43); Red Cell Distribution Width 12.8 % (12.1-15.2)
[2024-10-18 21:27] LABS: Specific Gravity 1.025 (1.005-1.030); Urine Bilirubin NEGATIVE (Negative); Urine Blood Negative (Negative); Urine Clarity Clear (Clear); Urine Color Yellow (Yellow); Urine Glucose NEGATIVE (Negative); Urine Ketones 2+ (Negative); Urine Microscopic Reflex YN NO UMIC; Urine Nitrite NEGATIVE (Negative); Urine Protein NEGATIVE (Negative); Urine Urobilinogen Normal (Normal); Urine pH 5.5 (5.0-7.0)
[2024-10-18 21:37] LABS: Albumin 3.7 g/dL (3.4-5.0); Albumin/Globulin Ratio 0.8 (1.1-1.8); Anion Gap 12.3 mEq/L (5.0-15.0); Bilirubin Total 2.6 mg/dL (0.2-1.0); Globulin 4.7 g/dL (2.3-3.5); Potassium 3.3 mEq/L (3.5-5.1); Protein, Total 8.4 g/dL (6.4-8.2)
[2024-10-18] MEDS ORDERED: ONDANSETRON 4 MG/2 ML VIAL ONE (21:46)
[2024-10-18] MEDS ORDERED: MORPHINE 4 MG/ML SYR ONE ×2 (21:47→23:41)
[2024-10-18] MEDS ORDERED: NA CHLORIDE 0.9% 1,000 ML ONE (21:47)
--- NOTE | 2024-10-18 22:42 | RAD REPORT ---
EXAMINATION: CT ABDOMEN AND PELVIS WITH CONTRAST CLINICAL INDICATION: Abdominal pain TECHNIQUE: CT abdomen and pelvis was performed, after the administration of 100 cc Isovue-300.. Sagit keisha and coronal reconstructions were obtained. One or more of the following dose reduction techniques were used: Automated exposure control, adjustment of the mA and kV according to patient si ze, and iterative reconstruction. Unless otherwise specified, incidental findings do not require dedicated imaging follow-up. [id number]. Oral contrast was not given which limits evaluation of bowel and appendix. COMPARISON: .April 2024 FINDINGS: Several tiny hepatic cyst. Cholecystectomy. A biliary stent has been placed the prior examination. Spleen, pancreas, adrenals and kidneys appear unremarkable No evidence of diverticulitis. Normal appendix. Small umbilical hernia. : IMPRESSION: No acute abnormality displayed
--- NOTE | 2024-10-18 23:35 | ER ---
Nurse's Notes [facility] Name: Dwayne Craig Age: 44 yrs Sex: Male : 1980 Arrival Date: 10/18/2024 Time: 20:46 Bed 8 Private MD: Diagnosis: Upper abdominal pain, unspecified Presentation: 10/18 20:51 Chief complaint: Patient states: bile duct stent placed 6 months ago and new onset pain lg3 to the same epigastric area X2 days and worsening. Coronavirus screen: Client denies travel out of the [place] in the last 14 days. At this time, the client does not indicate any symptoms associated with coronavirus-19. Ebola Screen: No symptoms or risks identified at this time. Initial Sepsis Screen: Does the patient meet any 2 criteria? No. Patient's initial sepsis screen is negative. Does the patient have a suspected source of infection? No. Patient's initial sepsis screen is negative. Risk Assessment: Do you want to hurt yourself or someone else? Patient reports no desire to harm self or others. Onset of symptoms is unknown. 20:51 Method Of Arrival: Ambulatory lg3 20:51 Acuity: JOSIAH 3 lg3 Triage Assessment: 20:53 General: Appears in no apparent distress. comfortable, Behavior is calm, cooperative. lg3 Pain: Complains of pain in epigastric area Pain currently is 8 out of 10 on a pain scale. EENT: No deficits noted. No signs and/or symptoms were reported regarding the EENT system. Neuro: No deficits noted. Storm Agitation-Sedation Scale (RASS): 0 - Alert and Calm Level of Consciousness is awake, alert, obeys commands, Oriented to person, place, time, situation. Cardiovascular: No deficits noted. Denies chest pain, shortness of breath, Capillary refill < 3 seconds Clubbing of nail beds is absent JVD is absent Patient's skin is warm and dry. Respiratory: No deficits noted. Airway is patent Respiratory effort is even, unlabored, Respiratory pattern is regular, symmetrical. GI: Abdomen is round non-distended, Reports upper abdominal pain, epigastric pain. : No deficits noted. No signs and/or symptoms were reported regarding the genitourinary system. Derm: No deficits noted. No signs and/or symptoms reported regarding the dermatologic system. Skin is intact, is healthy with good turgor, Skin is dry, Skin is normal, Skin temperature is warm. Musculoskeletal: No deficits noted. No signs and/or symptoms reported regarding the musculoskeletal system. Circulation, motion, and sensation intact. Range of motion: intact in all extremities. Historical: - Allergies: 20:53 PENICILLINS; lg3 - Home Meds: 20:53 None [Active]; lg3 - PMHx: 20:53 None; lg3 - PSHx: 20:53 Cholecystectomy; liver stent; lg3 - Immunization history:: Adult Immunizations up to date. - Infectious Disease History:: Denies. - Social history:: Smoking status: Patient denies any tobacco usage or history of. Patient/guardian denies using alcohol, street drugs. Screenin:00 [facility] ED Fall Risk Assessment (Adult) History of falling in the last 3 months, ha1 including since admission No falls in past 3 months (0 pts) Confusion or Disorientation No (0 pts) Intoxicated or Sedated No (0 pts) Impaired Gait No (0 pts) Mobility Assist Device Used No (0 pt) Altered Elimination No (0 pt) Score/Fall Risk Level 0 - 2 = Low Risk Oriented to surroundings, Maintained a safe environment, Educated pt \T\ family on fall prevention, incl call for assistance when getting out of bed, Hourly rounding (assess needs \T\ fall precautionary measures) done. Abuse screen: Denies threats or abuse. Denies injuries from another. Nutritional screening: No deficits noted. Tuberculosis screening: No symptoms or risk factors identified. Assessment: 21:00 General: Appears comfortable, uncomfortable, Behavior is calm, cooperative. Pain: ha1 Complains of pain in chest Pain does not radiate. Pain currently is 8 out of 10 on a pain scale. Quality of pain is described as burning, pressure. Neuro: Level of Consciousness is awake, alert, obeys commands, Oriented to person, place, time, situation. Cardiovascular: Reports chest pain, Heart tones S1 S2 present Capillary refill < 3 seconds Patient's skin is warm and dry. Rhythm is sinus rhythm. Respiratory: Airway is patent Respiratory effort is even, unlabored, Respiratory pattern is regular, symmetrical. GI: Abdomen is round non-distended, Bowel sounds present X 4 quads. Abd is soft and non tender X 4 quads. Reports epigastric pain. : No signs and/or symptoms were reported regarding the genitourinary system. Derm: Skin is pink, warm \T\ dry. Musculoskeletal: Circulation, motion, and sensation intact. Range of motion: intact in all extremities. 22:00 Reassessment: Patient and/or family updated on plan of care and expected duration. Pain ha1 level reassessed. Patient is alert, oriented x 3, equal unlabored respirations, skin warm/dry/pink. 22:25 Reassessment: Patient and/or family updated on plan of care and expected duration. Pain ha1 level reassessed. Patient is alert, oriented x 3, equal unlabored respirations, skin warm/dry/pink. pain 3/10. 23:28 Reassessment: Patient and/or family updated on plan of care and expected duration. Pain ha1 level reassessed. Patient is alert, oriented x 3, equal unlabored respirations, skin warm/dry/pink. Vital Signs: 20:51 BP 136 / 98; Pulse 87; Resp 17 S; Temp 98.6(O); Pulse Ox 98% on R/A; Weight 104.33 kg lg3 (R); Height 6 ft. 0 in. (R); Pain 8/10; 22:25 BP 137 / 95; Pulse 98; Resp 17 S; Pulse Ox 98% on R/A; ha1 23:25 BP 138 / 98; Pulse 98; Resp 16 S; Pulse Ox 96% on R/A; ha1 23:45 BP 140 / 96; Pulse 94; Resp 18; Pulse Ox 96% on R/A; ay 20:51 Body Mass Index 31.19 (104.33 kg, 182.88 cm) lg3 20:51 Pain Scale: Adult lg3 ED Course: 20:48 Patient arrived in ED. jj6 20:51 [facility]oid[facility] Lu[facility]C [facility]. kb 20:51 Preston Del Angel MD is Attending Physician. kb 20:53 Triage completed. lg3 20:53 Arm band placed on right wrist. lg3 20:56 Patient has correct armband on for positive identification. Placed in gown. Bed in low ha1 position. Call light in reach. Side rails up X 1. Adult w/ patient. 21:19 Initial lab(s) drawn, by ED staff, sent to lab. Urine collected: clean catch specimen, lg3 clear, EKG done, by ED staff, reviewed by Preston Del Angel MD. Inserted saline lock: 20 gauge in left wrist, using aseptic technique. Blood collected. Flushed with 10 mL NS. 21:19 CBC with Diff Sent. lg3 21:19 CMP Sent. lg3 21:19 Lipase Sent. lg3 21:19 Urinalysis w/ reflexes Sent. lg3 22:23 CT Abd/Pelvis - IV Contrast Only In Process Unspecified. EDMS 23:47 Provided Education on: Procedure Consent. ay 23:47 No provider procedures requiring assistance completed. IV discontinued, intact, ay bleeding controlled, No redness/swelling at site. Pressure dressing applied. Administered Medications: 21:53 Drug: Ondansetron IVP 4 mg IVP once; over 2 minutes Route: IVP; Site: left hand; ha1 22:30 Follow up: Response: No adverse reaction ha1 21:55 Drug: NS 0.9% IV 1000 ml IV at 1 bolus Per protocol; to be given as a bolus over 60 ha1 minutes Route: IV; Rate: 1 bolus; Site: left hand; 23:26 Follow up: Response: No adverse reaction; IV Status: Completed infusion; IV Intake: ha1 1000ml 21:56 Drug: morphine IVP or IV 4 mg IVP once over 4 mins Route: IVP; Infused Over: 4 mins; ha1 Site: left hand; 22:28 Follow up: Response: No adverse reaction; Marked relief of symptoms; Pain is decreased; ha1 RASS: Alert and Calm (0) 23:45 Drug: morphine IVP or IV 4 mg IVP once over 4 mins Route: IVP; Infused Over: 4 mins; ay Site: left hand; 23:47 Follow up: Response: No adverse reaction ay Medication: 23:47 VIS not applicable for this client. ay Intake: 23:26 IV: 1000ml; Total: 1000ml. ha1 Outcome: 23:35 Discharge ordered by . jerson 23:47 Discharged to home ambulatory, ay 23:47 Condition: stable 23:47 Discharge instructions given to patient, Instructed on discharge instructions, follow up and referral plans. medication usage, 23:49 Patient left the ED. ay Signatures: Dispatcher [employer] EDMS Loida Luz FNP-C PITER-Maggy Monique RN RN lg3 Coreen Martinez jj6 Denisha Terry, RN RN ha1 Jhony, Darrin, RN RN ay
--- NOTE | 2024-10-18 23:36 | EDPHYS ---
Physician Documentation [facility] Name: Dwayne Craig Age: 44 yrs Sex: Male : 1980 Arrival Date: 10/18/2024 Time: 20:46 Bed 8 Private MD: ED Physician Preston Del Angel HPI: 10/18 21:32 This 44 yrs old Male presents to ER via Ambulatory with complaints of Abdominal Pain. kb 21:32 Pt is a 44 year old male who presents for epigastric pain that started 4 days ago. kb Denies n/v/d, fever, shortness of breath. Reports he had a biliary stent placed 6 months ago and is supposed to follow up sometime this month to have it removed. No aggravating or alleviating factors. Historical: - Allergies: 20:53 PENICILLINS; lg3 - Home Meds: 20:53 None [Active]; lg3 - PMHx: 20:53 None; lg3 - PSHx: 20:53 Cholecystectomy; liver stent; lg3 - Immunization history:: Adult Immunizations up to date. - Infectious Disease History:: Denies. - Social history:: Smoking status: Patient denies any tobacco usage or history of. Patient/guardian denies using alcohol, street drugs. ROS: 21:33 Constitutional: As per HPI kb Exam: 21:33 Constitutional: This is a well developed, well nourished patient who is awake, alert, kb and in no acute distress. Head/Face: Normocephalic, atraumatic. ENT: Moist Mucous membranes Cardiovascular: Regular rate Respiratory: Respirations even and unlabored. No increased work of breathing. Talking in full sentences Skin: Warm, dry with normal turgor. Normal color. MS/ Extremity: Pulses equal, no cyanosis. Neurovascular intact. Full, normal range of motion. Neuro: Awake and alert, GCS 15, oriented to person, place, time, and situation. 21:33 ECG was reviewed by the Attending Physician. 21:33 Abdomen/GI: Inspection: abdomen appears normal, Bowel sounds: normal, Palpation: soft, in all quadrants, mild abdominal tenderness, in the epigastric area, Vital Signs: 20:51 BP 136 / 98; Pulse 87; Resp 17 S; Temp 98.6(O); Pulse Ox 98% on R/A; Weight 104.33 kg lg3 (R); Height 6 ft. 0 in. (R); Pain 8/10; 22:25 BP 137 / 95; Pulse 98; Resp 17 S; Pulse Ox 98% on R/A; ha1 23:25 BP 138 / 98; Pulse 98; Resp 16 S; Pulse Ox 96% on R/A; ha1 23:45 BP 140 / 96; Pulse 94; Resp 18; Pulse Ox 96% on R/A; ay 20:51 Body Mass Index 31.19 (104.33 kg, 182.88 cm) lg3 20:51 Pain Scale: Adult lg3 MDM: 20:51 Medical Screening Exam initiated kb 23:32 Data reviewed: vital signs, nurses notes. kb 23:32 Differential diagnosis: non-specific abd pain, pancreatitis, Peptic Ulcer Disease, abd kb infection. Management of patient was discussed with the following: Dr Del Angel, recommends outpatient follow up . Historians other than the Patient: Spouse/Significant Other: . 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 ED course: Discussed outpatient follow up with GI and return precautions. Pt and in agreement. 10/18 20:57 Order name: CBC with Diff; Complete Time: 21:26 kb 10/18 20:57 Order name: CMP; Complete Time: 21:40 kb 10/18 20:57 Order name: Lipase; Complete Time: 21:40 kb 10/18 20:57 Order name: Urinalysis w/ reflexes kb 10/18 20:59 Order name: Troponin High Sensitivity; Complete Time: 21:40 lg3 12 20:57 Order name: CT Abd/Pelvis - IV Contrast Only; Complete Time: 22:43 kb 10/18 20:57 Order name: IV Saline Lock; Complete Time: 21:19 kb 10/18 20:57 Order name: Labs collected and sent; Complete Time: 21:19 kb 10/18 20:59 Order name: EKG - Nurse/Tech; Complete Time: 21:19 lg3 EC:33 Rate is 81 beats/min. Rhythm is regular. QRS [place] is Normal. [place] interval is normal at kb 166 msec. QRS interval is normal at 90 msec. QT interval is normal at 420 msec. Administered Medications: 21:53 Drug: Ondansetron IVP 4 mg IVP once; over 2 minutes Route: IVP; Site: left hand; ha1 22:30 Follow up: Response: No adverse reaction ha1 21:55 Drug: NS 0.9% IV 1000 ml IV at 1 bolus Per protocol; to be given as a bolus over 60 ha1 minutes Route: IV; Rate: 1 bolus; Site: left hand; 23:26 Follow up: Response: No adverse reaction; IV Status: Completed infusion; IV Intake: ha1 1000ml 21:56 Drug: morphine IVP or IV 4 mg IVP once over 4 mins Route: IVP; Infused Over: 4 mins; ha1 Site: left hand; 22:28 Follow up: Response: No adverse reaction; Marked relief of symptoms; Pain is decreased; ha1 RASS: Alert and Calm (0) 23:45 Drug: morphine IVP or IV 4 mg IVP once over 4 mins Route: IVP; Infused Over: 4 mins; ay Site: left hand; 23:47 Follow up: Response: No adverse reaction ay Disposition: 10/19 21:00 Co-signature as Attending Physician, Preston Del Angel MD I agree with the assessment sp4 and plan of care. I reviewed the patient's care provided by the Advanced Practice Provider and agree with the diagnosis and treatment plan. Disposition Summary: 10/18/24 23:35 Discharge Ordered Notes: Location: Home Condition: Stable Diagnosis - Upper abdominal pain, unspecified kb Followup: kb - With: Emergency Department - When: As needed - Reason: Worsening of condition Followup: kb - With: Private Physician - When: 2 - 3 days - Reason: Recheck today's complaints, Continuance of care, Re-evaluation by your physician Discharge Instructions: - Discharge Summary Sheet kb - Abdominal Pain, Adult, [id number] kb Forms: - Medication Reconciliation Form kb - Antibiotic Education kb - Prescription Opioid Use kb - Patient Portal Instructions kb - Leadership Thank You Letter kb Prescriptions: - Tramadol 50 mg Oral Tablet - take 1 tablet ORAL route every 8 hours as needed; 12 tablet; Refills: 0, kb Product Selection Permitted Signatures: Dispatcher [employer] EDMS Loida Luz, COMMERCIAL LOAN ADMINISTRATOR-C COMMERCIAL LOAN ADMINISTRATOR-Ckb Maggy Simon, RN RN lg3 Denisha Terry RN RN ha1 Preston Del Angel MD MD sp4 Darrin Booker RN RN ay Corrections: (The following items were deleted from the chart) 10/18 20:58 20:58 CBC+H.LAB.BRZ ordered. EDMS EDMS 20:58 20:58 COMPREHENSIVE METABOLIC PANEL+C.LAB.BRZ ordered. EDMS EDMS 20:58 20:58 LIPASE+C.LAB.BRZ ordered. EDMS EDMS 20:58 20:58 Urinalysis+U.LAB.BRZ ordered. EDMS EDMS 20:59 20:59 Troponin High Sensitivity+C.LAB.BRZ ordered. EDMS EDMS
[2024-10-19 07:29] VITALS: TEMP 98.6
[2024-10-19 07:40] VITALS: O2SAT 96
[2024-10-19 07:41] VITALS: BP 140/96
== END 2024-10-18 23:49 | disposition home or self-care (01) ==
LOC: ER 20:46
DX: R10.13 Epigastric pain (principal); R10.10 Upper abdominal pain, unspecified
CPT/HCPCS: 36415; 74177; 80053; 81003; 83690; 84484; 85025; 96361; 96374; 96375; 99284; J2405; J7030; Q9967

== ENCOUNTER 2024-12-20 10:55 | Observation (INO) | payer BC, MEDICARE ==
[2024-12-20 12:04] LABS: Absolute Eosinophils 0.1 K/uL (0-0.5); Absolute Lymphocytes (CBC) 2.2 K/uL (0.7-4.9); Absolute Monocytes 0.5 K/uL (0.1-1.3); Absolute Neutrophil 4.9 K/uL (1.8-8.0); Basophils % 0.3 % (0-1.3); Eosinophils % 1.5 % (0-4.4); Hematocrit 42.9 % (39.6-49.0); Hemoglobin 15.5 g/dL (13.6-17.9); Lymphocytes % 28.4 % (15.3-44.8); MCH 32.1 pg (27.0-35.0); MCHC 36.1 g/dL (32.0-36.0); MCV 89.1 fL (80-100); MPV 7.7 fL (7.6-11.3); Monocytes % 6.3 % (3.3-12.3); Neutrophils % 63.5 % (41.7-73.7); Platelets 219 thou/uL (152-406); RBC Red Blood Cell Count 4.81 M/uL (4.33-5.43); Red Cell Distribution Width 12.7 % (12.1-15.2)
[2024-12-20] MEDS ORDERED: ONDANSETRON 4 MG/2 ML VIAL ONE ×2 (12:11→15:24)
[2024-12-20] MEDS ORDERED: FAMOTIDINE 20 MG/2 ML VIAL IV ONE (12:12)
[2024-12-20] MEDS ORDERED: NA CHLORIDE 0.9% 1,000 ML ONE (12:12)
[2024-12-20] MEDS ORDERED: MORPHINE 4 MG/ML SYR ONE (12:12)
[2024-12-20 12:17] LABS: Albumin 3.5 g/dL (3.4-5.0); Albumin/Globulin Ratio 0.7 (1.1-1.8); Anion Gap 6.5 mEq/L (5.0-15.0); Bilirubin Total 1.4 mg/dL (0.2-1.0); Globulin 4.9 g/dL (2.3-3.5); Potassium 3.5 mEq/L (3.5-5.1); Protein, Total 8.4 g/dL (6.4-8.2)
[2024-12-20 12:28] LABS: Specific Gravity 1.018 (1.005-1.030); Urine Bilirubin NEGATIVE (Negative); Urine Blood Negative (Negative); Urine Clarity Clear (Clear); Urine Color Light-Yellow (Yellow); Urine Glucose NEGATIVE (Negative); Urine Ketones NEGATIVE (Negative); Urine Microscopic Reflex YN NO UMIC; Urine Nitrite NEGATIVE (Negative); Urine Protein NEGATIVE (Negative); Urine Urobilinogen Normal (Normal)
--- NOTE | 2024-12-20 13:40 | RAD REPORT ---
EXAMINATION: CT Abdomen Pelvis W Contrast CLINICAL INDICATION: Male, 44 years old. ABD PAIN TECHNIQUE: CT abdomen and pelvis was performed, after the administration of IV contrast, as per [facility] protocol. Axial, sagittal and coronal reconstructions were obtained. One or more of the following dose reduction techniques were used: Automated exposure control, adjustment of the mA and k V according to patient size, and iterative reconstruction. Unless otherwise specified, incidental findings do not require dedicated imaging follow-up. COMPARISON: 10/18/2024 FINDINGS: LOWER CHEST: The visualized lung bases are clear. LIVER: Normal in size and contour. No focal lesion. BILIARY SYSTEM: Status post cholecystectomy. Mild central pneumobilia, stable. Metallic stent along t he distal CBD again seen. SPLEEN: Normal size. No focal lesion. PANCREAS: No mass, ductal dilation, or anny-pancreatic fluid. ADRENALS: Normal; no mass. KIDNEYS: Normal size and contour. No hydronephrosis. URINARY BLADDER: Unremarkable. GASTROINTESTINAL TRACT: No evidence of free air, significant intra-abdominal free fluid, bowel obstru ction or abscess. Nonspecific mild fluid opacification within short segments of the distal small bowel, could relate to mild enteritis or diarrheal state. APPENDIX: Increased caliber, mild also hyperenhancement, and mildly progressive fat stranding at the tip of the appendix since prior exam, now measures up to 8 mm. No periappendiceal collection or free air. LYMPH NODES: No lymphadenopathy. MUSCULOSKELETAL: No acute or suspicious osseous abnormality. ADDITIONAL FINDINGS: None. IMPRESSION: Mild inflammatory changes centered at the tip of the appendix, progressive since prior exam, concerni ng for uncomplicated acute appendicitis at the tip. Other stable findings as above. Nonspecific mild fluid opacification within short segments of the distal small bowel, could relate to mild enteritis or diarrheal state.
--- NOTE | 2024-12-20 13:42 | EDPHYS ---
Physician Documentation [facility] Name: Dwayne Craig Age: 44 yrs Sex: Male : 1980 Arrival Date: 12/20/2024 Time: 10:55 Bed 25 Private MD: ED Physician Christian Patterson HPI: 12/20 12:20 This 44 yrs old Male presents to ER via Ambulatory with complaints of bebeto Abdominal Pain. 12:20 The patient presents with abdominal pain right lower quadrant, abdominal distention in bebeto the upper abdomen, in the lower abdomen. Onset: The symptoms/episode began/occurred 1 day(s) ago. The symptoms do not radiate. Associated signs and symptoms: none. The symptoms are described as crampy. Modifying factors: The symptoms are alleviated by nothing, the symptoms are aggravated by movement, nothing. walking. Severity of pain: At its worst the pain was moderate in the emergency department the pain is unchanged. The patient has not experienced similar symptoms in the past. Historical: - Allergies: 11:14 PENICILLINS; cm10 - Home Meds: 11:14 None [Active]; cm10 - PMHx: 11:14 None; cm10 - PSHx: 11:14 Cholecystectomy; liver stent; cm10 - Immunization history:: Adult Immunizations unknown. - Infectious Disease History:: Denies. - Social history:: Smoking status: Patient denies any tobacco usage or history of. - Family history:: not pertinent. ROS: 12:23 Constitutional: Negative for fever, chills, and weight loss, Eyes: Negative for injury, bebeto pain, redness, and discharge, ENT: Negative for injury, pain, and discharge, Neck: Negative for injury, pain, and swelling, Cardiovascular: Negative for chest pain, palpitations, and edema, Respiratory: Negative for shortness of breath, cough, wheezing, and pleuritic chest pain, Back: Negative for injury and pain, : Negative for injury, bleeding, discharge, and swelling, MS/Extremity: Negative for injury and deformity, Skin: Negative for injury, rash, and discoloration, Neuro: Negative for headache, weakness, numbness, tingling, and seizure, Psych: Negative for depression, anxiety, suicide ideation, homicidal ideation, and hallucinations, Allergy/Immunology: Negative for hives, rash, and allergies, Endocrine: Negative for neck swelling, polydipsia, polyuria, polyphagia, and marked weight changes, Hematologic/Lymphatic: Negative for swollen nodes, abnormal bleeding, and unusual bruising, 12:23 Abdomen/GI: Positive for abdominal pain, of the right lower quadrant, Exam: 12:23 Constitutional: This is a well developed, well nourished patient who is awake, alert, bebeto and in no acute distress. Head/Face: Normocephalic, atraumatic. Eyes: Pupils equal round and reactive to light, extra-ocular motions intact. Lids and lashes normal. Conjunctiva and sclera are non-icteric and not injected. Cornea within normal limits. Periorbital areas with no swelling, redness, or edema. ENT: Nares patent. No nasal discharge, no septal abnormalities noted. Tympanic membranes are normal and external auditory canals are clear. Oropharynx with no redness, swelling, or masses, exudates, or evidence of obstruction, uvula midline. Mucous membranes moist. Neck: Trachea midline, no thyromegaly or masses palpated, and no cervical lymphadenopathy. Supple, full range of motion without nuchal rigidity, or vertebral point tenderness. No Meningismus. Chest/axilla: Normal chest wall appearance and motion. Nontender with no deformity. No lesions are appreciated. Cardiovascular: Regular rate and rhythm with a normal S1 and S2. No gallops, murmurs, or rubs. Normal PMI, no JVD. No pulse deficits. Respiratory: Lungs have equal breath sounds bilaterally, clear to auscultation and percussion. No rales, rhonchi or wheezes noted. No increased work of breathing, no retractions or nasal flaring. Back: No spinal tenderness. No costovertebral tenderness. Full range of motion. Male : Normal genitalia with no discharge or lesions. Skin: Warm, dry with normal turgor. Normal color with no rashes, no lesions, and no evidence of cellulitis. MS/ Extremity: Pulses equal, no cyanosis. Neurovascular intact. Full, normal range of motion., bilateral aka Neuro: Awake and alert, GCS 15, oriented to person, place, time, and situation. Cranial nerves II-XII grossly intact. Motor strength 5/5 in all extremities. Sensory grossly intact. Cerebellar exam normal. Normal gait. Psych: Awake, alert, with orientation to person, place and time. Behavior, mood, and affect are within normal limits. 12:23 Abdomen/GI: Inspection: abdomen appears normal, Bowel sounds: normal, Palpation: moderate abdominal tenderness, in the right lower quadrant, Liver: no appreciated palpable abnormalities, Hernia: not appreciated, Vital Signs: 11:13 BP 144 / 89; Pulse 67; Resp 15; Temp 97(TE); Pulse Ox 99% on R/A; Weight 104.33 kg; cm10 Height 6 ft. 0 in. ; Pain 5/10; 14:00 BP 139 / 78; Pulse 70; Resp 18; Pulse Ox 99% on R/A; ph 14:53 BP 132 / 72; Pulse 67; Resp 18; Temp 97.8; Pulse Ox 99% on R/A; ph 11:13 Body Mass Index 31.19 (104.33 kg, 182.88 cm) cm10 11:13 Pain Scale: Adult cm10 MDM: 10:59 Medical Screening Exam initiated bebeto 12:21 Differential diagnosis: appendicitis, diverticulitis, gastritis, Mesenteric ischemia or bebeto infarction, non-specific abd pain, pancreatitis, Peptic Ulcer Disease, Prostatitis, Pyelonephritis, Ureterolithiasis, urinary tract infection. Data reviewed: vital signs, nurses notes, lab test result(s), radiologic studies, CT scan. Consideration of Admission/Observation Patient was admitted/placed on observation. Escalation of care including admission/observation considered. I considered the following discharge prescriptions or medication management in the emergency department Medications were administered in the Emergency Department. See MAR. Independent interpretation of the following test(s) in the Emergency Department CT Scan: My interpretation is ct ab/ pelvis. Test considered but Not performed: Ultrasound no abd usg. Historians other than the Patient: pt wellinformed. 12/20 11:00 Order name: CBC with Diff; Complete Time: 12:20 [facility] 12/20 11:00 Order name: CMP; Complete Time: 12:20 [facility] 12/20 11:00 Order name: Lipase; Complete Time: 12:20 [facility] 12/20 11:00 Order name: Urinalysis w/ reflexes; Complete Time: 12:58 [facility] 12/20 13:54 Order name: Basic Metabolic Panel EDME 12/20 13:54 Order name: Basic Metabolic Panel EDME 12/20 13:54 Order name: CBC with Automated Diff EDME 12/20 13:54 Order name: CBC with Automated Diff EDMS 12/20 11:00 Order name: CT Abd/Pelvis - IV Contrast Only bebeto 12/20 11:00 Order name: IV Saline Lock; Complete Time: 12:02 bebeto 12/20 11:00 Order name: Labs collected and sent; Complete Time: 12:02 bebeto 12/20 13:39 Order name: NPO; Complete Time: 13:41 bebeto Administered Medications: 12:22 Drug: Famotidine IVP 20 mg IVP once; dilute with 10 mL 0.9% NaCl; give over 2 minutes ph Route: IVP; Site: right upper arm; 14:03 Follow up: Response: No adverse reaction ph 12:22 Drug: Ondansetron IVP 4 mg IVP once; over 2 minutes Route: IVP; Site: right upper arm; ph 14:02 Follow up: Response: No adverse reaction ph 12:22 Drug: morphine IVP or IV 4 mg IVP once over 4 mins Route: IVP; Infused Over: 4 mins; ph Site: right upper arm; 14:02 Follow up: Response: No adverse reaction; Pain is decreased; RASS: Alert and Calm (0) ph 12:22 Drug: NS 0.9% IV 1000 ml IV at 1 bolus Per protocol; to be given as a bolus over 60 ph minutes Route: IV; Rate: 1 bolus; Site: right upper arm; 13:30 Follow up: Response: No adverse reaction; IV Status: Completed infusion; IV Intake: ph 1000ml 13:52 Drug: Ciprofloxacin IVPB 400 mg 200 ml IVPB once over 60 mins Volume: 200 ml; Route: ph IVPB; Infused Over: 60 mins; Site: right upper arm; 14:52 Follow up: Response: No adverse reaction; IV Status: Completed infusion ph 14:52 Drug: metroNIDAZOLE IVPB 500 mg 100 ml IVPB at 200 ml/hr once over 30 mins Volume: 100 ph ml; Route: IVPB; Rate: 200 ml/hr; Infused Over: 30 mins; Site: right upper arm; 15:30 Follow up: Response: No adverse reaction; IV Status: Completed infusion ph Disposition Summary: 12/20/24 13:41 Hospitalization Ordered Notes: Hospitalization Status: Observation bebeto Provider: Delio Headley cha Condition: Stable bebeto Problem: new bebeto Symptoms: have improved bebeto Bed/Room Type: Standard bebeto Location: [facility] ER HOLD(12/20/24 14:35) kb3 Room Assignment: ERHOLD-(12/20/24 14:35) kb3 Diagnosis - Acute appendicitis with localized peritonitis bebeto Forms: - Medication Reconciliation Form bebeto - SBAR form bebeto - Leadership Thank You Letter bebeto Signatures: Dispatcher [employer] EDMS Christian Patterson MD MD cha Hall, Patricia, RN RN ph Sandie Bejarano RN RN kb3 Layla Headley RN RN cm10 Corrections: (The following items were deleted from the chart) 11:01 11:01 CBC+H.LAB.BRZ ordered. EDMS EDMS 11:01 11:01 COMPREHENSIVE METABOLIC PANEL+C.LAB.BRZ ordered. EDMS EDMS 11:01 11:01 LIPASE+C.LAB.BRZ ordered. EDMS EDMS 11:01 11:01 Urinalysis+U.LAB.BRZ ordered. EDMS EDMS 11:01 11:01 Abdomen Pelvis W Con+CT.RAD.BRZ ordered. EDME EDMS 14:35 13:41 Telemetry/MedSurg (Inpatient) [place] [id number] 14:35 13:41 [facility]
--- NOTE | 2024-12-20 13:42 | ER ---
Nurse's Notes [facility] Name: Dwayne Craig Age: 44 yrs Sex: Male : 1980 Arrival Date: 12/20/2024 Time: 10:55 Bed 25 Private MD: Diagnosis: Acute appendicitis with localized peritonitis Presentation: 12/20 11:13 Chief complaint: Patient states: RLQ abdominal pain onset yesterday. Pt also reports cm10 diarrhea. No fever, no urinary symptoms. Coronavirus screen: Client denies travel out of the [place] in the last 14 days. Ebola Screen: Patient denies travel to an Ebola-affected area in the 21 days before illness onset. Initial Sepsis Screen: Does the patient meet any 2 criteria? No. Patient's initial sepsis screen is negative. Does the patient have a suspected source of infection? No. Patient's initial sepsis screen is negative. Risk Assessment: Do you want to hurt yourself or someone else? Patient reports no desire to harm self or others. Onset of symptoms was December 20, 2024. 11:13 Method Of Arrival: Ambulatory cm10 11:13 Acuity: JOSIAH 3 cm10 Triage Assessment: 11:14 General: Appears in no apparent distress. uncomfortable, Behavior is calm, cooperative. cm10 Pain: Complains of pain in right lower quadrant Pain currently is 5 out of 10 on a pain scale. Quality of pain is described as sharp. Neuro: No deficits noted. Level of Consciousness is awake, alert, obeys commands, Oriented to person, place, time, situation, Appropriate for age. Respiratory: No deficits noted. Airway is patent Respiratory effort is even, unlabored, Respiratory pattern is regular, symmetrical. Historical: - Allergies: 11:14 PENICILLINS; cm10 - Home Meds: 11:14 None [Active]; cm10 - PMHx: 11:14 None; cm10 - PSHx: 11:14 Cholecystectomy; liver stent; cm10 - Immunization history:: Adult Immunizations unknown. - Infectious Disease History:: Denies. - Social history:: Smoking status: Patient denies any tobacco usage or history of. - Family history:: not pertinent. Screenin:20 [facility] ED Fall Risk Assessment (Adult) History of falling in the last 3 months, ph including since admission No falls in past 3 months (0 pts) Confusion or Disorientation No (0 pts) Intoxicated or Sedated No (0 pts) Impaired Gait No (0 pts) Mobility Assist Device Used No (0 pt) Altered Elimination No (0 pt) Score/Fall Risk Level 0 - 2 = Low Risk Oriented to surroundings, Maintained a safe environment, Hourly rounding (assess needs \T\ fall precautionary measures) done. Abuse screen: Denies threats or abuse. Denies injuries from another. Nutritional screening: No deficits noted. Tuberculosis screening: No symptoms or risk factors identified. Assessment: 12:19 General: Appears in no apparent distress. comfortable, well groomed, Behavior is calm, ph cooperative, appropriate for age. Pain: Complains of pain in right lower quadrant. Neuro: Storm Agitation-Sedation Scale (RASS): 0 - Alert and Calm Level of Consciousness is awake, alert, obeys commands, Oriented to person, place, time, situation. Cardiovascular: Capillary refill < 3 seconds in bilateral fingers Patient's skin is warm and dry. GI: Abdomen is non-distended, Bowel sounds present X 4 quads. Abd is soft X 4 quads Reports lower abdominal pain, diarrhea. Derm: Skin is pink, warm \T\ dry. 13:00 Reassessment: Patient appears in no apparent distress at this time. Patient and/or ph family updated on plan of care and expected duration. Pain level reassessed. Patient is alert, oriented x 3, equal unlabored respirations, skin warm/dry/pink. 14:52 Reassessment: Patient appears in no apparent distress at this time. Patient and/or ph family updated on plan of care and expected duration. Pain level reassessed. Patient is alert, oriented x 3, equal unlabored respirations, skin warm/dry/pink. Dr Headley at bedside to speak w/ pt and family. 15:55 Reassessment: Patient appears in no apparent distress at this time. Patient and/or ph family updated on plan of care and expected duration. Pain level reassessed. Patient is alert, oriented x 3, equal unlabored respirations, skin warm/dry/pink. Sandie RN at bedside to take pt to OR. Vital Signs: 11:13 BP 144 / 89; Pulse 67; Resp 15; Temp 97(TE); Pulse Ox 99% on R/A; Weight 104.33 kg; cm10 Height 6 ft. 0 in. ; Pain 5/10; 14:00 BP 139 / 78; Pulse 70; Resp 18; Pulse Ox 99% on R/A; ph 14:53 BP 132 / 72; Pulse 67; Resp 18; Temp 97.8; Pulse Ox 99% on R/A; ph 11:13 Body Mass Index 31.19 (104.33 kg, 182.88 cm) cm10 11:13 Pain Scale: Adult cm10 ED Course: 10:57 Patient arrived in ED. mr 10:59 Christian Patterson MD is Attending Physician. bebeto 11:14 Triage completed. cm10 11:15 Arm band placed on right wrist. Patient placed in waiting room. cm10 11:53 Initial lab(s) drawn, by me, sent to lab. Inserted saline lock: 22 gauge in right upper iw arm, using aseptic technique. Blood collected. Flushed with 10 mL NS. 12:02 Katalina Rubio, RN is Primary Nurse. iw 12:21 Patient has correct armband on for positive identification. Bed in low position. Call ph light in reach. Side rails up X 1. Pulse ox on. NIBP on. Door closed. Noise minimized. Pillow given. 12:50 CT Abd/Pelvis - IV Contrast Only In Process Unspecified. EDMS 13:40 Delio Headley MD is Hospitalizing Provider. [facility] 15:55 No provider procedures requiring assistance completed. Patient admitted, IV remains in ph place. Administered Medications: 12:22 Drug: Famotidine IVP 20 mg IVP once; dilute with 10 mL 0.9% NaCl; give over 2 minutes ph Route: IVP; Site: right upper arm; 14:03 Follow up: Response: No adverse reaction ph 12:22 Drug: Ondansetron IVP 4 mg IVP once; over 2 minutes Route: IVP; Site: right upper arm; ph 14:02 Follow up: Response: No adverse reaction ph 12:22 Drug: morphine IVP or IV 4 mg IVP once over 4 mins Route: IVP; Infused Over: 4 mins; ph Site: right upper arm; 14:02 Follow up: Response: No adverse reaction; Pain is decreased; RASS: Alert and Calm (0) ph 12:22 Drug: NS 0.9% IV 1000 ml IV at 1 bolus Per protocol; to be given as a bolus over 60 ph minutes Route: IV; Rate: 1 bolus; Site: right upper arm; 13:30 Follow up: Response: No adverse reaction; IV Status: Completed infusion; IV Intake: ph 1000ml 13:52 Drug: Ciprofloxacin IVPB 400 mg 200 ml IVPB once over 60 mins Volume: 200 ml; Route: ph IVPB; Infused Over: 60 mins; Site: right upper arm; 14:52 Follow up: Response: No adverse reaction; IV Status: Completed infusion ph 14:52 Drug: metroNIDAZOLE IVPB 500 mg 100 ml IVPB at 200 ml/hr once over 30 mins Volume: 100 ph ml; Route: IVPB; Rate: 200 ml/hr; Infused Over: 30 mins; Site: right upper arm; 15:30 Follow up: Response: No adverse reaction; IV Status: Completed infusion ph Medication: 12:21 VIS not applicable for this client. ph Intake: 13:30 IV: 1000ml; Total: 1000ml. ph Outcome: 13:41 Decision to Hospitalize by Provider. [facility] 15:55 Admitted to OR accompanied by nurse, via wheelchair, with chart, 15:55 Condition: good 15:55 Instructed on the need for admit, 15:56 Patient left the ED. ph Signatures: Dispatcher [employer] EDChristian Pastor MD MD cha Rivera, Mary, Reg Reg mr Katalina Rubio, Emmy Weber RN, RN RN ph Martinez, Clarissa, RN RN cm10
[2024-12-20] MEDS ORDERED: CIPROFLOXACIN 400mg IV 400 MG/200 ML BAG IV ONE (13:43)
[2024-12-20] MEDS ORDERED: METRONIDAZOLE 500mg IVPB 500 MG/100 ML BAG IV ONE (13:43)
[2024-12-20] MEDS ORDERED: ONDANSETRON 4 MG/2 ML VIAL IV PRN (13:50)
[2024-12-20] MEDS ORDERED: MORPHINE 4 MG/ML SYR IV PRN (13:50)
[2024-12-20] MEDS ORDERED: ACETAMINOPHEN 325 MG TABLET PO PRN (13:56)
[2024-12-20] MEDS ORDERED: ROCURONIUM 50 MG/5 ML VIAL IV ONE (15:23)
[2024-12-20] MEDS ORDERED: FENTANYL CITR 100 MCG/2 ML ONE (15:23)
[2024-12-20] MEDS ORDERED: propofoL 200 MG/20 ML VIAL IV ONE (15:23)
[2024-12-20] MEDS ORDERED: MIDAZOLAM HCL 2 MG/2 ML INJ ONE (15:23)
[2024-12-20] MEDS ORDERED: dexAMETHasone 4 MG/ML VIAL ONE (15:24)
[2024-12-20] MEDS ORDERED: LIDOCAINE 2% MPF 5 ML VIAL ONE (15:24)
[2024-12-20] MEDS ORDERED: KETOROLAC 30 MG/ML INJ ONE (15:24)
[2024-12-20] MEDS: Ringers Lactate 1,000 ML IV ONE (15:54)
[2024-12-20] MEDS: SUGAMMADEX SODIUM 200 MG/2 ML VIAL IV ONE (16:49)
[2024-12-20] MEDS ORDERED: GLYCOPYRROLATE 0.2 MG/ML SYR ONE (16:52)
--- NOTE | 2024-12-20 17:04 | P.BOP ---
Preoperative diagnosis: Acute appendicitis Postoperative diagnosis: same, umbilical hernia Primary procedure: 1. Laparoscopic appendectomy Secondary procedure: 2. Open repair of umbilical hernia Estimated blood loss: <10cc Specimen: ananda Findings: as above Anesthesia: General Complications: None Transferred to: Recovery Room Condition: Good
[2024-12-20] MEDS: HYDROMORPHONE HCL 1 MG/ML INJ ONE (17:29)
[2024-12-20 17:45] VITALS: O2SAT 98
[2024-12-20] MEDS: CIPROFLOXACIN 400mg IV 400 MG/200 ML BAG IV SCH (20:37)
[2024-12-20] MEDS: HYDROCODONE/APAP 5/325 MG TAB PO PRN (20:37)
[2024-12-20] MEDS: D5 0.45 NS 1,000 ML IV SCH (22:00)
[2024-12-20 22:25] VITALS: BMI 31.1
--- NOTE | 2024-12-21 02:05 | OP ---
Date of Procedure: 12/20/2024 Surgeon: Delio Headley MD Preoperative Diagnosis: Acute appendicitis. Postoperative Diagnosis: Acute appendicitis. Procedure: Laparoscopic appendectomy. Estimated Blood Loss: Less than 10 cc. Specimen: Appendix. Anesthesia: General plus local. Findings: Acute appendicitis. Complications: None. Indication: This is the case of a 44-year-old patient who comes with above diagnosis. Fully explain ed the benefits, alternatives, and risks of laparoscopic possible open appendectomy, which included, but not limited to, infection, bleeding, damage to adjacent structures, anesthesia complication, MO, and even . He also understands this might not relieve the symptoms. He might need more than on e surgical intervention. He understood and signed a consent. Description Of Procedure: The patient was brought to the operating room, placed in supine position. Anesthesia was done without complication. Abdominal area was prepped and draped in the usual steril e fashion. Marcaine 0.5% was injected for local anesthetic, followed by sharp incision of the skin i n the infraumbilical region, and we noticed in that area the patient had a small hernia with omentum. The hernia sac was removed. Fascial edges were cleaned. Put Vicryl #1 inside of the fascia. Ridge on trocar was carefully introduced. Pneumoperitoneum was obtained. At that moment, I proceeded to p ut two more 5 mm trocars in the suprapubic and left lower quadrant under direct visualization. After that, I identified the area of the appendix. The patient was placed in the Trendelenburg position w ith right side up. We noticed the half of the appendix distally was inflamed, but the base seemed to be spared, so we created a window in the base of the appendix and transected that with an Endo CRISTEL 4 5 mm nonvascular and the mesoappendix with an Endo CRISTEL 45 mm vascular device. Further hemostasis was obtained with the help of 5 mm hemoclips. Appendix was removed from the abdominal cavity using the Endo Catch through the umbilical incision. The area was irrigated. No bleeding. No bowel leak. At that moment, I proceeded to remove the trocars under direct vision. Deflated pneumoperitoneum. Ernestine sed the fascia and the umbilical hernia with #1 Vicryl. Irrigated subcutaneous tissue, closed that w ith 3-0 chromic and the skin with aiden. Sponge count and instrument counts were correct. The pat ient tolerated procedure well. The patient was sent to recovery in stable condition. ABIOLA/PEDRO Voice ID: [id number] Report ID: [id number]
[2024-12-21 05:21] LABS: Absolute Lymphocytes (CBC) 1.2 K/uL (0.7-4.9); Absolute Monocytes 0.4 K/uL (0.1-1.3); Absolute Neutrophil 6.5 K/uL (1.8-8.0); Basophils % 0.2 % (0-1.3); Hematocrit 39.5 % (39.6-49.0); Hemoglobin 13.6 g/dL (13.6-17.9); Lymphocytes % 14.7 % (15.3-44.8); MCHC 34.5 g/dL (32.0-36.0); MPV 7.8 fL (7.6-11.3); Monocytes % 4.6 % (3.3-12.3); Neutrophils % 80.5 % (41.7-73.7); Nucleated Red Blood Cells % 0.1 % (0-0); Platelets 226 thou/uL (152-406); RBC Red Blood Cell Count 4.38 M/uL (4.33-5.43); Red Cell Distribution Width 12.5 % (12.1-15.2)
[2024-12-21 05:34] LABS: Anion Gap 6.7 mEq/L (5.0-15.0); Potassium 3.7 mEq/L (3.5-5.1)
[2024-12-21 12:39] VITALS: BP 127/81; TEMP 98.1
--- NOTE | 2024-12-21 13:18 | P.DS ---
Admission Date: 12/20/24 Discharge Date: 12/21/24 Disposition: ROUTINE DISCHARGE Discharge Condition: GOOD Vital Signs/Physical Exam: Temp Pulse Resp BP Pulse Ox 98.1 F 57 20 127/81 96 12/21/24 12:00 12/21/24 12:00 12/21/24 12:00 12/21/24 12:00 12/21/24 12:00 General: Alert, In no apparent distress, Oriented x3, Cooperative HEENT: PERRLA, EOMI Neck: Supple Respiratory: Normal air movement Cardiovascular: Normal pulses Gastrointestinal: Soft and benign Musculoskeletal: No erythema, No tenderness, No warmth Integumentary: No rashes, No breakdown, No erythema, No warmth, No cyanosis Neurological: Normal speech Laboratory Data at Discharge: WBC 8.10 thou/uL (4.3-10.9) 12/21/24 04:58 Hgb 13.6 g/dL (13.6-17.9) D 12/21/24 04:58 Hct 39.5 % (39.6-49.0) L 12/21/24 04:58 Plt Count 226 thou/uL (152-406) 12/21/24 04:58 Sodium 137 mEq/L (136-145) 12/21/24 04:58 Potassium 3.7 mEq/L (3.5-5.1) 12/21/24 04:58 BUN 9 mg/dL (7-18) 12/21/24 04:58 Creatinine 0.94 mg/dL (0.70-1.30) 12/21/24 04:58 Glucose 173 mg/dL (74-106) H 12/21/24 04:58 Total Bilirubin 1.4 mg/dL (0.2-1.0) H 12/20/24 11:52 AST 18 U/L (15-37) 12/20/24 11:52 ALT 33 U/L (16-61) 12/20/24 11:52 Alkaline Phosphatase 72 U/L (45-117) 12/20/24 11:52 Lipase 30 U/L (13-75) 12/20/24 11:52 Home Medications: Pantoprazole [Protonix Tab] 40 mg PO DAILY #30 tab 08/10/22 Physician Discharge Instructions: Keep area dry for 24h then may remove outer dressing and shower. Keep aiden intact and cover with antibiotic ointment and bandaid. Pt advised to see his primary MD as soon as possible Diet: Regular Activity: No lifting more than 10 lbs Followup: NONE,NONE [Primary Care Provider] - Delio Headley MD [ACTIVE - CAN ADMIT] - 1 Week
== END 2024-12-21 13:44 | disposition home or self-care (01) ==
LOC: ER 10:55 → 2ND 13:48 → ER 13:49 → 2ND 13:49
PROVIDERS: ADMIT Surgery; ATTEND Surgery
PROC: 0DTJ4ZZ Resection of Appendix, Percutaneous Endoscopic Approach (ICD-10-PCS; principal; 2024-12-20 16:30)
DX: K35.80 Unspecified acute appendicitis (principal); Z88.0 Allergy status to penicillin
CPT/HCPCS: 36415; 74177; 80048; 80053; 81003; 83690; 85025; 88302; 88304; 96361; 96365; 96367; 96375; 99285; A4314; G0378; J0744; J1100; J1171; J2003; J2250; J2405; J2704; J3010; J7030; J7120; J7799; Q9967